=== PATIENT | female | born 1980 | race Caucasian/White ===

== ENCOUNTER 2017-10-20 06:00 | Inpatient (IN) ==
[2017-10-20] MEDS ORDERED: MAG-AL + SIM ORAL LIQUID 30ml PO PRN (06:17)
[2017-10-20] MEDS ORDERED: LIDOCAINE 1% (10mg/ml) 2mL INJ PF SDV ID PRN (06:17)
[2017-10-20] MEDS ORDERED: LR 1,000 ML IV PRN (06:17)
[2017-10-20] MEDS ORDERED: SALINE FLUSH 10ml SYRINGE IV PRN (06:17)
[2017-10-20] MEDS ORDERED: CARBOPROST 250 MCG/ML INJECTION IM PRN (06:17)
[2017-10-20] MEDS ORDERED: METHYLERGONOVINE 0.2 MG/ML INJECTION IM PRN (06:17)
[2017-10-20] MEDS ORDERED: OXYTOCIN DRIP 30 UNIT/500 ML ML IV PRN (06:17)
[2017-10-20] MEDS ORDERED: CALCIUM CARBONATE Chewable 500mg TABLET PO PRN ×2 (06:17→19:52)
--- OUTSIDE RECORDS SUMMARY | 2017-10-20 06:18 | External Medical Summary | Continuity of Care Document ---
:1980 Author Organization [facility] Address [address] [place], [place] [id number] Phone Care Team Providers Name Role Phone Humaira Santiago DO Unavailable Unavailable Allergies, Adverse Reactions, Alerts Substance Reaction Severity Status No Known Drug Allergies Unknown Active Medications Medication Instructions Dosage Effective Dates Status Comments (start - stop) DRAMAMINE (unknown take 1 tablet by oral - Active strength) route every 6 hours as needed as needed TUMS (unknown - Active strength) Vitamin D3 400 unit - Active capsule ferrous sulfate 325 take 1 tablet by ORAL 325 MG - Active mg (65 mg iron) route every day tablet vit-iron Take 1 by mouth daily - Active fumarate-FA 28 mg-0.8 mg Tab ZANTAC (unknown infuse by intravenous - Active strength) route every 8 hours over Problems Condition Effective Dates (start - stop) Clinical Status Family history of endo, nutritional - and metabolic diseases Follow-Up, Routine - Supervision of elderly multigravida, - third trimester 32 weeks gestation of - 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, second trimester 20 weeks gestation of - Supervision of elderly multigravida, - third trimester 28 weeks gestation of - Supervision of elderly multigravida, - first trimester Encntr screen for infections w sexl - mode of transmiss Encounter for screening for oth - infec/parastc diseases Encounter for suprvsn of normal - , first trimester Encounter For Other Specified - Screening 9 weeks gestation of - Supervision of elderly multigravida, - first trimester 13 weeks gestation of - Supervision of elderly multigravida, - second trimester 20 weeks gestation of - Supervision of elderly multigravida, - second trimester 16 weeks gestation of - Supervision of elderly multigravida, - third trimester Other malformation of placenta, third - trimester 33 weeks gestation of - Supervision of elderly multigravida, - third trimester 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, third trimester 30 weeks gestation of - Supervision of elderly multigravida, - third trimester Other malformation of placenta, third - trimester 34 weeks gestation of - Supervision of elderly multigravida, - third trimester Other malformation of placenta, third - trimester 33 weeks gestation of - Supervision of elderly multigravida, - third trimester Other malformation of placenta, third - trimester 34 weeks gestation of - Supervision of elderly multigravida, - third trimester 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, third trimester 32 weeks gestation of - Oth related conditions, - second trimester 15 weeks gestation of - 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, second trimester 24 weeks gestation of - Encntr for manager gyn exam (general) - (routine) w/o abn findings Family history of endo, nutritional and metabolic diseases Routine Care, Multigravida 38 weeks gestation of - Active Procedures Procedure Date OB Visit No Charge Results Test Name Date and Time Measure Units Reference Range Abnormal Flag Comments Unknown Advance Directives Directive Yes / No Effective Date File Name Unknown Encounters Encounter Practice Location Reason(s) Diagnoses Date Provider Care Team Description For Visit Members Morena [place] Supervision of Sep-2 Rc Referring In Womens elderly [place]. 700 Provider: jacob Beaversavipayton, 8 Medical [place] [address] third [facility] B, 1522, trimesterOther Dr Billy Garcia Polanco, malformation of 120, Medical [place], placenta, third [place], Center [id number], [id number] weeks [place], [address], [place] gestation of [id number] [place], tel: , [place]. [place], tel: tel: [phone] Morena [place] Supervision of Sep- Rc Referring In Womens Ultrasound elderly [place]. 700 Provider: robe Beavers, 8 Medical [place] [address] third [facility] B, [address], trimester[address] Billy Garcia Polanco, malformation of 120, Medical [place], placenta, third [place], Center [id number], [id number] weeks [place], [address], [place] gestation of [id number] [place], tel: , [place]. [place], tel: tel: [phone] Morena [place] Supervision of Sep- Rc Referring In Womens elderly [place]. 700 Provider: jacob Beaversavipayton, 8 Medical [place] [address] third [facility] B, 1522, trimesterOther Dr Billy Garcia Polanco, malformation of 120, Medical [place], placenta, third [place] [id number], weeks [place], [address], [place] gestation of [id number] [place], tel: , [place]. [place], tel: tel:[phone] Morena [place] Supervision of Sep- Rc Referring In Womens Ultrasound elderly [place]. 700 Provider: robe Beavers, 8 Medical [place] PO Box third [facility], 1522, trimesterOther Dr Billy Garcia Polanco, malformation of 120, Medical [place], placenta, third [place], [place] [id number], [id number] weeks [place], [address], [place] gestation of [id number] [place], tel:+ , [place]. [place], tel: tel:[phone] Morena [place] Supervision of Sep-1 Rc Referring In Womens elderly 2-201 [place]. 700 Provider: Health TO, multigravida, 8 Medical Humaira PO Box third [email or web address] Center [facility], 1522, weeks gestation Billy Stiles, of 120, Medical [place] RAWLS, [place] [id number], [place], [address], [place] [id number] [place], tel:+ , [place], tel: tel:[phone] [place] Supervision of Sep-1 Rc Referring In Womens Ultrasound elderly 2-201 [place]. 700 Provider: Health TO, multigravida, 8 Medical Humaira PO Box third Center [facility] B, 1522, trimesterPlacenta Dr Billy Garcia Lime, previa specified 120, Medical [facility], as w/o [place] [id number], hemorrhage, third [place], [address], [place] [id number] weeks [id number] [place], tel:+[phone] gestation of , [place]. [place], tel: tel:[phone] Morena [place] Supervision of Salvador-2 Rc Referring In Womens elderly 8-201 [place]. 700 Provider: Romana ARIZA multigravida, 8 Medical [place] PO Box third Center [place] B, [address], [address] Billy Garcia Lime, previa specified 120, Medical [facility], as w/o [place] [id number], hemorrhage, third [place], [address], [place] [id number] weeks [id number] [place], tel:+[phone] gestation of , [place]. [place], tel: tel:[phone] [place] Supervision of Salvador-1 Rc Referring In Womens elderly 4-201 [place]. 700 Provider: alanna Beaversgravida, 8 Medical Hum[place] PO Box third [email or web address] Center [facility], 1522, weeks gestation Billy Stiles, of 120, Medical [place] [facility] [id number], [place], [address], [place] [id number] [place], tel:+[phone] , [place], [address]. tel: tel:[phone] Morena [place] Placenta previa May-1 Rc Referring In Womens specified as w/o 7-201 [place]. 700 Provider: elis Beavers, second 8 Medical Humaira PO Box weeks Center [facility], 1522, gestation of Billy Stiles, 120, Medical [place] [facility] [id number], [place], [address], [place] [id number] [place], tel:+2 , [place], [address] tel: tel:[phone] [place] Placenta previa Apr-1 Rc Referring In Womens specified as w/o 9-201 [place]. 700 Provider: elis Beavers, second 8 Medical Humaira PO Box [id number] weeks Center Pamela [place], 1522, gestation of Billy Stiles, 120, Medical [place] [facility] [id number], [place], [address], [place] [id number] [place], tel:+[phone] , [place], [address] tel: tel:[phone] [place] Supervision of Apr-1 Rc Referring In Womens Ultrasound elderly 9-201 [place]. 700 Provider: alanna Beaversgravida, 8 Medical [place] PO Box second Center [facility], 1522, [email or web address] weeks Billy Stiles, gestation of 120, Medical [facility], [place], [place] [id number], [place], [address], [place] [id number] [place], tel:+[phone] , [place], [address] tel: tel:[phone] Morena [place] Supervision of Mar-2 Rc Referring In Womens elderly 0-201 [place]. 700 Provider: Health TO, multigravida, 8 Medical Humaira PO Box second [facility], 1522, [id number] weeks Billy Stilesta, gestation of 120, Medical [place], [facility] [id number], [place], [address], [place] [id number] [place], tel:+ , [place], [address] tel: tel:[phone] Morena [place] Ot May- Sobbing Referring In Womens related 9-201 [place]. Provider: Health TO, conditions, 8 [facility] Humaira PO Box second Medical [facility], 1522, [email or web address] weeks Center Garcia Polanco, gestation of Drive, Medical [place], Suite Center [id number], 120, [address], [place], tel:+ [place], [address], tel:+[phone] [place]. [id number] tel: [phone] Morena [place] Supervision of Rc Referring In Womens elderly 7-201 [place]. 700 Provider: Romana ARIZA, multigravida, 8 Medical [place] PO Box first Center [facility], 1522, weeks gestation Billy Stiles, of 120, Medical [facility], [facility] [id number], [place], [address], [place] [id number] [place], tel: , [place], [address]. tel: tel:[phone] Morena [place] Supervision of Rc Referring In Womens elderly 0-201 [place]. 700 Provider: Health TO, multigravida, 8 Medical Humaira PO Box first [facility], 1522, trimesterEncntr Billy Stiles Lime, screen for 120, Medical [place], infections [facility]l [facility] [id number], mode of [place], [address], [place] transmissEncounte [id number] [place], tel: [place] , [place], [address] for oth tel: tel:[phone] infec/parastc [phone] diseasesEncounter for suprvsn of normal , first trimesterEncounte r For Other Specified Screening9 weeks gestation of Morena [place] Encntr for manager gyn Sep-2 Rc Referring In Womens exam (general) [place]. 700 Provider: Romana ARIZA, (routine) w/o abn 6 Medical [place] PO Box [facility] [place], 1522, history of endo, Billy Stiles, nutritional and 120, Medical [place], metabolic [place], [place] [id number], diseasesFakyly [place], [address], [place] history of endo, [id number] [place], tel: nutritional and , [place]. [place], metabolic tel: tel:[phone] Morena [place] Nov-1 Rc Referring In Womens Follow-Up, [place]. 700 Provider: Romana ARIZA, Routine 5 Medical Humaira PO Box [facility], 1522, , Billy Polanco, 120, Medical [place] [facility] [id number], [place], [facility] 210, [place] [id number] [place], tel: , [place]. [place], tel: tel:+ [phone] Morena [place] Routine Care, Oct-0 Rc Referring In Womens [id number] - [place]. 700 Provider: Romana ARIZA, weeks gestation 5 Medical [place] PO Box of Center Rc Last, 1522, Billy Stiles, 120, Medical [place] [facility] [id number], [place], [facility] 120, [place] [id number] [place], tel: , . [place], tel: [phone]. [id number] tel:[phone] Morena [place] Sep-0 Rc Referring In Womens 3-201 [place]. 700 Provider: Romana ARIZA, 5 [facility] Box [place] Rc Last, 1522, Billy Stiles, 120, Medical [place] [facility] [id number], [place], Billy 120, [place] [id number] [place], tel: , . [place] tel: [phone]. [id number] tel:[phone] Morena [place] Sep-1 Rc In Womens 5-200 [place]. 700 [facility], 9 Medical [address] [place] 1522, , Billy Polanco, 120, [place], [place], [id number], [place], [place] [id number] tel: , [place]. tel: [phone] Morena [place] Sep-0 Dyer In Womens 2-200 Noemi. [facility], 8 700 PO Box Medical [address], [address], Billy [place], 120, [id number], [place], [place], tel: [phone] , [place]. tel: [phone] Family History Family Member Diagnosis Age At Onset Sister Gynecological Problem Mother Hypercholesterolemia Paternal Grandmother Diabetes mellitus Immunizations Vaccine Date Status Comments Influenza, injectable, completed Source: New Immunization Record quadrivalent, preservative free, 3 yrs or older Tdap completed Source: New Immunization Record Payers Payer name Insurance type Covered green party ID Authorization(s) [facility] [id number] [facility] [id number] [facility] [id number] Social History Type Description Quantity Date Captured Alcohol Use Details No Caffeine Use Details Unknown Tobacco Use Status Unknown Smoking Status Never smoker Vital Signs Date / Height Weight BMI Pulse Blood Temperature Respiratory Body Head BMI Time: Rate Pressure Rate Surface Circumference percentile Area 182.90 32.2 116/71 2018 lbs 9 mm[Hg] 8:51 kg/m AM eter (2) Chief Complaint And Reason For Visit Unknown Chief Complaint And Reason For Visit Reason For Referral Reason For Referral Unknown Plan Of Care Date Type Action Status Appointment Sharri Corona BOOKED Appointment Sharri Corona BOOKED Appointment Sharri Corona BOOKED Appointment Sharri Corona BOOKED Future Order: Radiology Order OB Detailed Complete Ultrasound Ordered ([id number]) Future Order: Radiology Order Biophysical Profile without NST Ordered ([id number]) Future Order: Radiology Order Umbilical Artery Echo ([id number]) Ordered Future Order: Radiology Order Biophysical Profile without NST Ordered ([id number]) Future Order: Radiology Order Umbilical Artery Echo ([id number]) Ordered Future Order: Radiology Order Ultrasound OB Follow-up ([id number]) Ordered Future Order: Lab Order Pap Smear With HPV Reflex If ASCUS Ordered ([id number]) Date Type Problem Goal Intervention Status Start Date Unknown. History Of Present Illness Encounter Date Complaint History Of Present Illness This patient has no known history of present illness Functional Status Encounter Date Functional Assessment Cognitive Assessment Unknown Medications Administered Medication Instructions Dosage Effective Dates (start - stop) Status Comments Drug Treatment Unknown Instructions Date Instruction Additional Information HIV and other routine tests risk factors identified by history anticipated course of care nutrition and weight gain counseling, special diet toxoplasmosis precautions (cats / raw meat) sexual activity exercise indications for ultrasound influenza vaccine environmental / work hazards travel use of any medications (including supplements, vitamins, herbs, OTC drugs) domestic violence seat belt use childbirth classes / hospital facilities hospital registration genetic testing
--- OUTSIDE RECORDS SUMMARY | 2017-10-20 06:18 | External Medical Summary | Continuity of Care Document ---
:1980 Author Organization [facility] Address [address] [place], [place] [id number] Phone Care Team Providers Name Role Phone Humaira Santiago DO Unavailable Unavailable Allergies, Adverse Reactions, Alerts Substance Reaction Severity Status No Known Drug Allergies Unknown Active Medications Medication Instructions Dosage Effective Dates Status Comments (start - stop) TUMS (unknown - Active strength) Vitamin D3 [...] - trimester 33 weeks gestation of - Placenta previa specified [...] Other malformation of placenta, third - trimester 35 weeks gestation of - Supervision of elderly multigravida, - third trimester Other malformation of placenta, third - trimester 33 weeks gestation of - Supervision of elderly multigravida, - third trimester Other malformation of placenta, third - trimester 34 weeks gestation of - Supervision of elderly multigravida, - third trimester 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, third trimester 32 weeks gestation of - Supervision of elderly multigravida, - third trimester Encounter For Screening For - Streptococcus B 35 weeks gestation of - Supervision of elderly multigravida, - third trimester 32 weeks gestation of - Oth related conditions, - second trimester 15 weeks gestation of - Other malformation of placenta, third - trimester 36 weeks gestation of - Other malformation of placenta, third - trimester 36 weeks gestation of - 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, second trimester 24 weeks gestation of - 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 Provider: Romana ARIZA, placenta, third 8 [facility] Humaira PO Box weeks [facility], 1522, gestation of [place], [facility] [address], [facility], Suite Center [id number], 120, [address], [place] Shemar Staton, tel:+ [place], [address]. [id number], tel: [place]. [phone] tel: [phone] Morena Staton Other Oct-0 Rc Referring In Womens Ultrasound malformation of [facility] 700 Provider: Romana ARIZA, placenta, third 8 Medical Humaira PO Box weeks [facility], 1522, gestation of [place], 120, Medical [facility] [id number], [place], [address], [place] [id number] She[place], tel: , [place], [address]. [id number] tel: tel: [phone] Morena Staton Supervision of Oct-0 Rc Referring In Womens elderly 2-201 [facility] 700 Provider: Romana ARIZA, multigravida, 8 Medical Humaira PO Box third Center [facility], 1522, trimesterEncounte [place], r For 120, [facility], Screening For Shemar [place] [id number], Streptococcus B35 [place], [address], [place] weeks gestation [id number] [place], tel: of , [place]. [place], tel: tel:[phone] Morena Staton Supervision of 0 Rc Referring In Womens Ultrasound elderly 2-201 [place]. 700 Provider: Health TO, multigravida, 8 Medical Humaira PO Box third Center [facility], 1522, trimesterOther [place], malformation of 120, Medical [place], placenta, third [place], Center [id number], [id number] weeks [place], [address], [place] gestation of [id number] [place], tel:+ , [place], tel: tel:[phone] [place] Supervision of Rc Referring In Womens elderly [place]. 700 Provider: alanna Beaversgravida, 8 Medical Humaira PO Box third [facility], 1522, trimesterOther [place], malformation of 120, Medical [place], placenta, third [place], Center [id number], [email or web address] weeks [place], [address], [place] gestation of [id number] [place], tel: , [place], tel: tel:[phone] [place] Supervision of Rc Referring In Womens Ultrasound elderly [place]. 700 Provider: Romana ARIZA, multigravida, 8 Medical Humaira PO Box third [facility], 1522, trimesterOther [place] St[place], malformation of 120, Medical [place], placenta, third [place], Center [id number], [email or web address] weeks [place], [address], [place] gestation of [id number] [place], tel: , [place], tel: tel:[phone] [place] Supervision of Rc Referring In Womens elderly - [place]. 700 Provider: Romana ARIZA, multigravida, 8 Medical Humaira PO Box third Center [facility], 1522, trimesterOther [place], malformation of 120, Medical [place], placenta, third [place], Center [id number], [id number] weeks [place], [address], [place] gestation of [id number] [place], tel: , [place], tel: tel: [phone] Morena Staton Supervision of Sep-1 Rc Referring In Womens Ultrasound elderly 9-201 [place]. 700 Provider: Health TO, multigravida, 8 Medical Humaira PO Box third Center [facility], 1522, trimesterOther Billy Stilesta, malformation of 120, Medical [place], placenta, third [facility] [id number], [email or web address] weeks [place], [address], [place] gestation of [id number] [place], tel: , [place], tel: tel:[phone] Morena Staton Supervision of Sep- Rc Referring In Womens elderly 2-201 [place]. 700 Provider: Romana ARIZA, multigravida, 8 Medical Humaira PO Box third [email or web address] Center [facility], 1522, weeks gestation Billy Stilesta, of 120, Medical Shemar RAWLS, [place] [id number], [place], [address], [place] [id number] [place], tel: , [place]. [place], tel: tel:[phone] Morena Staton Supervision of Sep- Rc Referring In Womens Ultrasound elderly 2-201 [place]. 700 Provider: Health TO, multigravida, 8 Medical Humaira PO Box third Center [facility] B, 1522, trimesterPlacenta Dr Billy 700 [place], previa specified 120, Medical [facility], as w/o Shemar [place] [id number], hemorrhage, third [place], [address], [place] [email or web address] weeks [id number] She[place], tel: gestation of , [place]. [place], tel: tel:[phone] [place] Supervision of [place]-2 Rc Referring In Womens elderly 8-201 [place]. 700 Provider: Health TO, multigravida, 8 Medical Humaira PO Box third Center [facility] B, 1522, trimesterPlacenta Dr, Billy 700 [place], previa specified 120, Medical [place], as w/o [facility] [id number], hemorrhage, third [place], [address], [place] [id number] weeks [id number] [place], tel:+ [place] , [place], [address] tel: tel:[phone] Morena Staton Supervision of Salvador- Rc Referring In Womens elderly 4- [place]. 700 Provider: jacob Beaversavipayton, 8 Medical Humaira PO Box third [email or web address] Center [facility], 1522, weeks gestation [place], of 120, Medical She[facility] [id number], [place], [address], [place] [id number] She[place], tel: , [place], [address] tel: tel:[phone] Morena Staton Placenta previa May- Rc Referring In Womens specified as w/o [place]. 700 Provider: elis Beavers, second 8 Medical Humaira PO Box [email or web address] weeks Center [facility], 1522, gestation of [place], 120, Medical [facility] [id number], [place], [address], [place] [id number] She[place], tel: , [place], [address] tel: tel:[phone] Morena Staton Placenta previa Apr-1 Rc Referring In Womens specified as w/o [place]. 700 Provider: elis Beavers, second 8 Medical Humaira PO Box [id number] weeks Center [facility], 1522, gestation of [place], 120, Medical She[facility] [id number], [place], [address], [place] [id number] She[place], tel: , [place], [address] tel: tel:[phone] Morena Staton Supervision of Apr- Rc Referring In Womens Ultrasound elderly [place]. 700 Provider: alanna Beaversgravipayton, 8 Medical Humaira PO Box second Center [facility], 1522, [email or web address] weeks Billy Stilesta, gestation of 120, Medical [place], [facility] [id number], [place], [address], [place] [id number] She[place], tel:+ , [place], [address]. tel: tel:[phone] Morena Staton Supervision of May-2 Rc Referring In Womens elderly 0-201 [place]. 700 Provider: Health TO, multigravida, 8 Medical Humaira PO Box second [facility], 1522, [id number] weeks [place], gestation of 120, Medical [place], [place], [place] [id number], [place], [address], [place] [id number] Shemar, tel:+ , [place], [address]. tel: tel:[phone] Mornea Staton Oth Mar-1 Sobbing Referring In Womens related 9-201 [place]. Provider: Health [place], conditions, 8 [facility] Humaira PO Box second [facility], 1522, [email or web address] weeks Center [place], gestation of Drive, Medical [place], [address] [id number], 120, [address], [place] Shemar [place], tel:+ [place], [address], tel:+[phone] [place]. [id number] tel: [phone] Morena Staton Supervision of Feb-2 Rc Referring In Womens elderly 7-201 [place]. 700 Provider: Romana ARIZA, multigravida, 8 Medical Humaira PO Box first [facility], 1522, weeks gestation [place], of 120, Medical [facility], [facility] [id number], [place], [address], [place] [id number] She[place], tel: , [place], [address]. tel: tel:[phone] Morena Staton Supervision of [place]-3 Rc Referring In Womens elderly 0-201 [place]. 700 Provider: Romana ARIZA, multigravida, 8 Medical Humaira PO Box first [facility], 1522, trimesterEncntr [place], screen for 120, Medical [place], infections w sexl Shemar [place] [id number], mode of [place], [address], [place] transmissEncounte [id number] Shemar, tel: r for screening , [place]. 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 700 Provider: Health TO, (routine) w/o abn 6 Medical Humaira [facility] [place], 1522, history of endo, , [place], nutritional and 120, Medical [place], metabolic [facility] [id number], [facility], [address], [place] history of endo, [id number] She[place], tel: nutritional and , [place]. [place], metabolic tel: tel:[phone] Morena Staton Nov- Rc Referring In Womens Follow-Up, [place]. 700 Provider: Romana ARIZA, Routine 5 Medical Humaira PO Box [place] Pamela Farnsworth, 1522, [place], 120, Medical She[facility] [id number], [place], [address], [place] [id number] She[place], tel: , [place]. [place], tel: tel:+ [phone] Morena Staton Routine Care, Oct-0 Rc Referring In Womens [id number] [place]. 700 Provider: Romana ARIZA, weeks gestation 5 Medical Michael PO Box of Center Rc Last, 1522, [place], 120, Medical She[facility] [id number], [place], [facility] 120, [place] [id number] [place], tel: , [place], tel: [phone]. [id number] tel:[phone] Morena Staton Sep-0 Rc Referring In Womens 3-201 [place]. 700 Provider: Health PA, 5 Medical [facility] Box [place] Rc Last, 1522, , [place] [address] [place], 120, Medical [place], [facility] [address] [id number], [place], [facility] 120, [place] [id number] [place], tel: , [place], tel: [phone]. [id number] tel:[phone] Associates Shemar Sep-1 Rc In Womens 5-200 [place]. 700 Health PA, 9 Medical Box [place] 1522, , Billy [place], 120, [facility], [place], [id number], [place], [place] [id number] tel: , [place]. tel: [phone] Morena Staton Sep-0 Dyer In Womens 2-200 Noemi. Health PA, 8 700 [facility] 1522, [place] Dr [place]lin, [facility], [facility], [id number], [place], [facility], tel: [phone] , [place]. tel: [phone] Family History Family Member Diagnosis Age At Onset Sister Gynecological Problem Mother Hypercholesterolemia Paternal Grandmother Diabetes mellitus Immunizations Vaccine Date Status Comments Tdap completed Source: New Immunization Record Influenza, injectable, completed Source: New Immunization Record quadrivalent, preservative free, 3 yrs or older Tdap completed Source: New Immunization Record Payers Payer name Insurance type Covered libertarian ID Authorization(s) [facility] [id number] [facility] [id number] [facility] [id number] [facility] [id number] Social History Type Description Quantity Date Captured Alcohol Use Details No Caffeine Use Details Unknown Tobacco Use Status Unknown Smoking Status Never smoker Vital Signs Date / Height Weight BMI Pulse Blood Temperature Respiratory Body Head BMI Time: Rate Pressure Rate Surface Circumference percentile Area 182.30 32.1 lbs 9 mm[Hg] 1:08 kg/m PM eter (2) Chief Complaint And Reason For Visit Unknown Chief Complaint And Reason For Visit Reason For Referral Reason For Referral Unknown Plan Of Care Date Type Action Status Appointment Sharri Corona- For KB BOOKED Appointment Sharri Corona [facility] PPTL BOOKED Future Order: Radiology Order OB Detailed Complete Ultrasound Ordered ([id number]) Future Order: Radiology Order Biophysical Profile without NST Ordered ([id number]) Future Order: Radiology Order Umbilical Artery Echo ([id number]) Ordered Future Order: Radiology Order Biophysical Profile without NST Ordered ([id number]) Future Order: Radiology Order Umbilical Artery Echo ([id number]) Ordered Future Order: Radiology Order Biophysical Profile without NST Ordered ([id number]) Future Order: Radiology Order Umbilical Artery Echo ([id number]) Ordered Future Order: Radiology Order Ultrasound OB Follow-up ([id number]) Ordered Future Order: Radiology Order Biophysical Profile without NST Ordered ([id number]) Future Order: Radiology Order Umbilical Artery Echo ([id number]) Ordered Future Order: Lab Order Pap Smear [...]
--- OUTSIDE RECORDS SUMMARY | 2017-10-20 06:18 | External Medical Summary | Continuity of Care Document ---
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 Provider: Romana ARIZA, placenta, third 8 [facility] [address] [email or web address] weeks [facility], 1522, gestation of [place] Garcia Polanco, Drive, [facility], Suite [address] [id number], [facility], [address], Shemar Staton, tel: [place], [address]. [id number], tel: . [phone] tel: [phone] Morena Staton Other Oct-0 Rc Referring In Womens Ultrasound malformation of 9[address] [facility] 700 Provider: Romana ARIZA, placenta, third 8 Medical [place] [address] [id number] weeks [facility], 1522, gestation of Billy Stiles, 120, Medical [facility] [id number], [place], [address], [place] [id number] Shemar, tel: , [facility], [address]. [id number] tel: tel: [phone] Morena Staton Supervision of Oct-0 Rc Referring In Womens elderly 2-201 [place]. 700 Provider: Romana ARIZA, multigravida, 8 Medical [place] PO Box third Center [facility], 1522, trimesterEncounte Billy Stiles r For 120, [facility], Screening For Shemar [place] [id number], Streptococcus B35 [place], [address], [place] weeks gestation [id number] [place], tel: of , [place]. [place], tel: tel: [phone] Morena Staton Supervision of Oct-0 Rc Referring In Womens Ultrasound elderly 2-201 [place]. 700 Provider: Health TO, multigravida, 8 Medical [place] PO Box third [facility], 1522, trimesterOther Dr Billy Garcia Polanco, malformation of 120, Medical [place], placenta, third Shemar, Center [id number], [id number] weeks [place], [address], [place] gestation of [id number] [place], tel: , [place]. [place], tel: tel:[phone] Morena Staton Supervision of Rc Referring In Womens elderly 5-201 [place]. 700 Provider: alanna Beaversgravida, 8 Medical [place] PO Box [facility], 1522, trimesterOther Dr Billy Garcia Polanco, malformation of 120, Medical [place], placenta, third Shemar, Center [id number], [id number] weeks [place], [address], [place] gestation of [id number] [place], tel: , [place]. [place], tel: tel:[phone] Morena Staton Supervision of Rc Referring In Womens Ultrasound elderly 5-201 [place]. 700 Provider: Romana ARIZA, alannagravida, 8 Medical [place] PO Box [facility], 1522, trimesterOther Dr Billy 700 [place], malformation of 120, Medical [place], placenta, third [place], Center [id number], weeks [place], [address], [place] gestation of [id number] [place], tel: , [place]. [place], tel: tel:[phone] Morena Staton Supervision of Sep- Rc Referring In Womens elderly 9-201 [place]. 700 Provider: Romana ARIZA, multigravida, 8 Medical [place] PO Box [facility], 1522, trimesterOther Dr, Billy Garcia Polanco, malformation of 120, Medical [place], placenta, third [place], Center [id number], [id number] weeks [place], [address], [place] gestation of [id number] [place], tel: , [place]. [place], tel: tel: [phone] Morena Staton Supervision of Sep-1 Rc Referring In Womens Ultrasound elderly 9-201 [place]. 700 Provider: Romana ARIZA, multigravida, 8 Medical [place] PO Box third [facility], 1522, trimesterOther , Billy 700 [place], malformation of 120, Medical [place], placenta, third [place], [place] [id number], [id number] weeks [place], [address], [place] gestation of [id number] [place], tel: , [place]. [place], tel: tel: [phone] Morena Staton Supervision of Sep-1 Rc Referring In Womens elderly 2-201 [place]. 700 Provider: Romana ARIZA, multigravida, 8 Medical [place] PO Box third [id number] Center [facility] B, 1522, weeks gestation Dr Billy Garcia [place], of 120, Medical [facility], Shemar, [place] [id number], [place], [address], [place] [id number] [place], tel: , [place]. [place], tel: tel: [phone] Morena Staton Supervision of Sep-1 Rc Referring In Womens Ultrasound elderly 2-201 [place]. 700 Provider: Romana ARIZA, multigravida, 8 Medical [place] PO Box third Center [facility], 1522, trimesterPlacenta , Billy 700 [place], previa specified 120, Medical [place], as w/o [place] [id number], hemorrhage, third [place], [address], [place] [id number] weeks [id number] Shemar, tel: gestation of , [place]. [place], tel: tel: [phone] Morena Staton Supervision of Salvador-2 Rc Referring In Womens elderly 8- [place]. 700 Provider: Romana ARIZA, multigravida, 8 Medical [place] PO Box third Center [facility], 1522, trimesterPlacenta Billy Stileschita, previa specified 120, Medical [place], as w/o Shemar [place] [id number], hemorrhage, third [place], [address], [place] [id number] weeks [id number] She[place], tel:+[phone] gestation [place] , [place], [address] tel: tel:[phone] Morena Staton Supervision of Salvador- Rc Referring In Womens elderly [place]. 700 Provider: robe Beavers, 8 Medical [place] PO Box third [email or web address] Center [facility], 1522, weeks gestation Billy Stiles, of 120, Medical [facility] [id number], [place], [address], [place] [id number] [place], tel:+ , [place]. [place], tel: tel:[phone] Staton Placenta previa May-1 Rc Referring In Womens specified as w/o Michael. 700 Provider: elis Beavers, second 8 Medical [place] PO [address] [email or web address] [facility], 1522, gestation of Billy Stiles, 120, Medical She[facility] [id number], [place], [address], [place] [id number] She[place], tel:+ , [place], [address] tel: tel:[phone] Morena Staton Placenta previa Apr-1 Rc Referring In Womens specified as w/o Michael. 700 Provider: elis Beavers, second 8 Medical [place] PO Box [id number] weeks Center [facility], 1522, gestation of Billy Stiles, 120, Medical Shemar [facility] [id number], [place], [address], [place] [id number] [place], tel:+ , [place]. [place], tel: tel:[phone] Staton Supervision of Apr-1 Rc Referring In Womens Ultrasound elderly Michael. 700 Provider: Health PA, multigravida, 8 Medical [place] PO Box second Center [place] B, 1522, [id number] weeks Billy Stileschita, gestation of 120, Medical [place], [place], [place] [id number], [place], [address], [place] [id number] She[place], tel:+ , [place], [address]. tel: tel:[phone] Morena Staton Supervision of May-2 Rc Referring In Womens elderly 0-201 [place]. 700 Provider: Romana ARIZA, multigravida, 8 Medical [place] PO Box second Center [facility], 1522, [email or web address] weeks Billy Stiles [place], gestation of 120, Medical [place], [place], [place] [id number], [place], [address], [place] [id number] She[place], tel:+ , [place], [address]. tel: tel:[phone] Morena Staton Oth May- Sobbing Referring In Womens related 9-201 [place]. Provider: Health TO, conditions, [address] [facility] PO Box second Medical [facility], 1522, [id number] weeks Center Garcia [place], gestation of Drive, Medical [place], [address] [id number], [facility], [address], [place] Shemar [place], tel: [place], [address], tel:+316 [place]. [id number] tel: [phone] Morena Staton Supervision of Apr-2 Rc Referring In Womens elderly 7-201 [place]. 700 Provider: Romana ARIZA, multigravida, 8 Medical [place] PO Box first [id number] Center [facility], 1522, weeks gestation Billy Stiles, of 120, Medical Shemar [facility] [id number], [place], [address], [place] [id number] [place], tel: , [place], [address] tel: tel:[phone] Morena Staton Supervision of Winston-3 Rc Referring In Womens elderly 0-201 [place]. 700 Provider: Romana ARIZA, multigravida, 8 Medical [place] PO Box first Center [place] B, 1522, trimesterEncntr , Billy Garcia Polanco, screen for 120, Medical [place], infections w sexl Shemar [place] [id number], mode of [place], [address], [place] transmissEncounte [id number] Shemar, tel: r for screening , [place]. [place], for oth tel: tel:[phone] infec/parastc [phone] diseasesEncounter for suprvsn of normal , first trimesterEncounte r For Other Specified Screening9 weeks gestation of Morena Staton Encntr for gynecological assistant Sep-2 Rc Referring In Womens exam (general) [place]. 700 Provider: Health TO, (routine) w/o abn 6 Medical [place] PO Box findingsFamily [facility], 1522, history of endo, Dr Billy Garcia Polanco, nutritional and 120, Medical [place], [facility] [id number], diseasesFamily [place], [address], [place] history of endo, [id number] Shemar, tel: nutritional and , [place]. [place], metabolic tel: tel:[phone] diseases [phone] Morena Staton Jan- Rc Referring In Womens Follow-Up, Michael. 700 Provider: Health TO, Routine 5 Medical [place] PO Box [facility], 1522, Billy Stiles, 120, Medical Shemar [facility] [id number], [place], [address], [place] [id number] [place], tel: , [place]. [place], tel: tel:[phone] Morena Staton Routine Care, Dec- Rc Referring In Womens [id number] [place]. 700 Provider: Romana ARIZA, weeks gestation 5 Medical Michael PO Box of [place] Rc R, 1522, Billy Stiles, 120, Medical Shemar [facility] [id number], [place], Billy 120, [place] [id number] [place], tel: , [place]. [place], tel: [phone]. [id number] tel:[phone] Morena Staton Sep-0 Rc Referring In Womens 3-201 [place]. 700 Provider: Health PA, 5 Medical [place] PO Box Center Rc R, [address]osi, , [place] [address] [place], 120, Medical [place], [facility] Dr [id number], [place], [facility] 120, [place] [id number] [place], tel: , [place]. [place], tel: [phone]. [id number] tel:[phone] Morena Staton Sep-1 Rc In Womens 5-200 [place]. 700 Health [place], 9 Medical PO Box Center [address], , [facility] [place], 120, [place], [place], [id number], [place], [place] [id number] tel: , [place]. tel: [phone] Morena Staton Sep-0 Dyer In Womens 2-200 Noemi. Health [place], [address] [place] [address], [place] Dr Collin, [facility], 120, [id number], [place], [place], tel: [phone] , [place]. tel: [phone] Family History Family Member Diagnosis Age At Onset Sister Gynecological Problem Mother Hypercholesterolemia Paternal Grandmother Diabetes mellitus Immunizations Vaccine Date Status Comments Tdap completed Source: New Immunization Record Influenza, injectable, completed Source: New Immunization Record quadrivalent, preservative free, 3 yrs or older Tdap completed Source: New Immunization Record Payers Payer name Insurance type Covered libertarian ID Authorization(s) [facility] [id number] [facility] [id number] [facility] [id number] [facility] [id number] Social History Type Description Quantity Date Captured Alcohol Use Details Unknown Caffeine Use Details Unknown Tobacco Use Status Unknown Smoking Status Never smoker Vital Signs Date / Height Weight BMI Pulse Blood Temperature Respiratory Body Head BMI Time: Rate Pressure Rate Surface Circumference percentile Area Unknown Chief Complaint And Reason For Visit Unknown Chief Complaint And Reason For Visit Reason For Referral Reason For Referral Unknown Plan Of Care Date Type Action Status Appointment Sharri Corona- For KB BOOKED Appointment Sharri Corona [facility] PPTL BOOKED Future Order: Radiology Order Biophysical Profile without NST Ordered ([id number]) Future Order: Radiology Order Umbilical Artery Echo ([id number]) Ordered Future Order: Radiology Order OB Detailed Complete Ultrasound Ordered ([id number]) Future Order: Radiology Order Biophysical Profile without NST Ordered ([id number]) Future Order: Radiology Order Umbilical Artery Echo ([id number]) Ordered Future Order: Radiology Order Biophysical Profile without NST Ordered ([id number]) Future Order: Radiology Order Umbilical Artery Echo ([id number]) Ordered Future Order: Radiology Order Ultrasound OB Follow-up ([id number]) Ordered Future Order: Radiology Order Biophysical Profile without NST Ordered ([id number]) Future Order: Radiology Order Umbilical Artery Echo ([id number]) Ordered Future Order: Lab Order Pap Smear [...]
--- OUTSIDE RECORDS SUMMARY | 2017-10-20 06:18 | External Medical Summary | Continuity of Care Document ---
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 700 Provider: robe Beavers, 8 Medical [place] PO Box [facility] B, 1522, trimesterOther Billy Stiles, malformation of 120, Medical [place], placenta, third Shemar, Center [id number], [id number] weeks [place], [address], [place] gestation of [id number] [place]mar, tel: , [place]. [place], tel: tel: [phone] Morena Staton Supervision of Sep-2 Rc Referring In Womens Ultrasound elderly [place]. 700 Provider: robe Beavers, 8 Medical [place] PO Box [facility] B, 1522, trimesterOther Billy Stiles, malformation of 120, Medical [place], placenta, third Shemar Center [id number], [id number] weeks [place], [address], [place] gestation of [id number] [place], tel: , [place]. [place], tel: tel: [phone] Morena Staton Supervision of Sep- Rc Referring In Womens elderly [place]. 700 Provider: robe Beavers, 8 Medical [place] PO Box [facility] B, 1522, trimesterOther Dr Billy Garcia Polanco, malformation of 120, Medical [place], placenta, third Shemar Center [id number], [email or web address] weeks [place], [address], [place] gestation of [id number] [place], tel: , [place]. [place], tel: tel: [phone] Morena Staton Supervision of Sep- Rc Referring In Womens Ultrasound elderly [place]. 700 Provider: robe Beavers, 8 Medical [place] PO Box third [facility], 1522, trimesterOther Dr Billy Garcia Polanco, malformation of 120, Medical [place], placenta, third Shemar [place] [id number], [id number] weeks [place], [address], [place] gestation of [id number] [place], tel:+ , [place]. [place], tel: tel:[phone] Morena Staton Supervision of Fernando-1 Rc Referring In Womens elderly 2-201 [place]. 700 Provider: Health TO, multigravida, 8 Medical [place] PO Box third [id number] Center [facility] B, 1522, weeks gestation Billy Stiles, of 120, Medical [place] [address] [id number], [place], [address], [place] [id number] She[place], tel:+ , [place]. [place], tel: tel:[phone] Morena Staton Supervision of Fernando-1 Rc Referring In Womens Ultrasound elderly 2-201 [place]. 700 Provider: Romana ARIZA multigravida, 8 Medical [place] PO Box third Center [facility] B, 1522, trimesterPlacenta Dr Billy 700 [place], previa specified 120, Medical [facility], as w/o Shemar [place] [id number], hemorrhage, third [place], [address], [place] [id number] weeks [id number] [place], tel:+ gestation of , [place]. [place], tel: tel:[phone] Staton Supervision of Salvador-2 Rc Referring In Womens elderly 8-201 [place]. 700 Provider: Health TO multigravida, 8 Medical [place] PO Box third Center [place] B, 1522, trimesterPlacenta Dr Billy 700 [place], previa specified 120, Medical [facility], as w/o Delphine [place] Dr [id number], hemorrhage, third [place], [address], [place] [id number] weeks [id number] [place], tel:+2 gestation of , [place]. [place], tel: tel:+[phone] Staton Supervision of Salvador-1 Rc Referring In Womens elderly 4-201 [place]. 700 Provider: alanna Beaversgravida, 8 Medical [place] PO Box third [id number] Center [facility], 1522, weeks gestation Billy Stiles, of 120, Medical [place] [facility] [id number], [place], [address], [place] [id number] She[place], tel:+ , [place], [address] tel: tel:[phone] Staton Placenta previa May-1 Rc Referring In Womens specified as w/o 7-201 [place]. 700 Provider: elis Beavers, second 8 Medical [place] PO Box [id number] weeks Center [facility] Daja, 1522, gestation of Billy Stiles, 120, Medical Shemar [facility] [id number], [place], [address], [place] [id number] [place], tel:+ , [place], [address] tel: tel:[phone] Staton Placenta previa Apr-1 Rc Referring In Womens specified as w/o 9-201 [place]. 700 Provider: elis Beavers, second 8 Medical [place] PO Box [id number] weeks Center Pamela [place], 1522, gestation of Billy Stiles, 120, Medical Shemar [facility] [id number], [place], [address], [place] [id number] [place], tel:+ , [place], [address] tel: tel:[phone] [place]on Supervision of Apr-1 Rc Referring In Womens Ultrasound elderly 9-201 [place]. 700 Provider: jacob Beaversavida, 8 Medical [place] PO Box second Center [facility], 1522, [email or web address] weeks Billy Stiles, gestation of 120, Medical [facility], [place], [place] [id number], [place], [address], [place] [id number] Shemar, tel:+2 , [place], [address] tel: tel:+[phone] Satton Supervision of Mar-2 Rc Referring In Womens elderly 0-201 [place]. 700 Provider: Health TO, multigravida, 8 Medical [place] PO Box second [facility], 1522, [id number] weeks Billy [place], gestation of 120, Medical [place], [facility] [id number], [place], [address], [place] [id number] [place], tel:+ , [place], [address] tel: tel:[phone] Morena Staton Ot May- Sobbing Referring In Womens related 9-201 [place]. Provider: Health TO, conditions, 8 [facility] PO Box second Medical [facility], 1522, [id number] weeks Center Garcia Polanco, gestation of Drive, Medical [place], [address] [id number], 120, [address], [place] Shemar [place], tel:+ [place], [address], tel:+316 [place]. 7557797 tel: [phone] Morena Staton Supervision of Rc Referring In Womens elderly 7-201 [place]. 700 Provider: Health TO, multigravida, 8 Medical [place] PO Box first [id number] Center [facility], 1522, weeks gestation Billy Stiles, of 120, Medical [facility], [facility] [id number], [place], [address], [place] [id number] [place], tel:+ , [place], [address] tel: tel:+[phone] Morena Staton Supervision of Rc Referring In Womens elderly 0-201 [place]. 700 Provider: Health TO, multigravida, 8 Medical [place] PO Box first [facility], 1522, trimesterEncntr Billy Stiles, screen for 120, Medical [place], infections w sexl [facility] [id number], mode of [place], [address], [place] transmissEncounte [id number] Shemar, tel:+ r for screening , [place]. 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 700 Provider: Romana ARIZA, (routine) w/o abn 6 Medical [place] PO Box [facility]Family [facility], 1522, history of endo, Billy Stiles, nutritional and 120, Medical [place], metabolic [facility] [id number], diseasesFatnly [place], [address], [place] history of endo, [id number] Shemar, tel:+ nutritional and , [place]. [place], metabolic tel: tel:+[phone] diseases [phone] Morena Staton Nov- Rc Referring In Womens Follow-Up, [place]. 700 Provider: Romana ARIZA, Routine 5 Medical [place] PO Box [place] Pamela [place]arnsworth, 1522, Billy Stiles, 120, Medical She[place] [facility] [id number], [place], [address], [place] [id number] [place], tel: , [place]. [place], tel: tel:+ [phone] Morena Staton Routine Care, Oct-0 Rc Referring In Womens [id number] - [place]. 700 Provider: Romana ARIZA, weeks gestation 5 Medical [place] PO Box of Center Rc Last, 1522, Billy Stiles, 120, Medical She[place] [facility] [id number], [place], [place] 120, [place] [id number] Shemar, tel: , . [place], tel: [phone]. [id number] tel:[phone] Morena Staton Sep-0 Rc Referring In Womens 3-201 [place]. 700 Provider: Romana ARIZA, 5 Medical [place] PO Box Center Rc Last, 1522, Billy Stiles, 120, Medical She[place] [facility] [id number], [place], [place] 120, [place] [id number] Shemar, tel: , . [place] tel: [phone]. [id number] tel:[phone] Morena Staton Sep-1 Rc In Womens 5-200 [place]. 700 [facility], 9 Medical PO Box [place] 1522, , Billy Polanco, 120, [place], [place], [id number], [place], [place] [id number] tel: , [place]. tel: [phone] Morena Staton Sep-0 Dyer In Womens 2-200 Noemi. [facility], 8 700 PO Box [facility] 1522, Center Dr Collin, Billy [place], 120, [id number], [place], [place], tel: [phone] , [place]. tel: [phone] Family History Family Member Diagnosis Age At Onset Sister Gynecological Problem Mother Hypercholesterolemia Paternal Grandmother Diabetes mellitus Immunizations Vaccine Date Status Comments Influenza, injectable, completed Source: New Immunization Record quadrivalent, preservative free, 3 yrs or older Tdap completed Source: New Immunization Record Payers Payer name Insurance type Covered green party ID Authorization(s) [facility] [id number] [facility] [id number] [facility] [id number] Social History Type Description Quantity Date Captured Unknown Vital Signs Date / Height Weight BMI [...] Sharri Corona BOOKED Future Order: Radiology Order Ultrasound OB Follow-up ([id number]) Ordered Future Order: Radiology Order OB Detailed Complete Ultrasound Ordered ([id number]) Future Order: Radiology Order Biophysical Profile without NST Ordered ([id number]) Future Order: Radiology Order Umbilical Artery Echo ([id number]) Ordered Future Order: Radiology Order Biophysical Profile without NST Ordered ([id number]) Future Order: Radiology Order Umbilical Artery Echo ([id number]) Ordered Future Order: Lab Order Pap Smear [...]
--- OUTSIDE RECORDS SUMMARY | 2017-10-20 06:18 | External Medical Summary | Continuity of Care Document ---
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) - (routine) w/o abn findings Family history of endo, nutritional and metabolic diseases Routine Care, Multigravida 38 weeks gestation of - Active Procedures Procedure Date Unknown Results Test Name Date and Time Measure Units Reference Range Abnormal Flag Comments Unknown Advance Directives Directive Yes / No Effective Date File Name Unknown Encounters Encounter Practice Location Reason(s) Diagnoses Date Provider Care Team Description For Visit Members Morena [place] Supervision of Rc Referring In Womens elderly 2-[address] [place] [address] Provider: robe Beavers, 8 Medical [place] PO Box third [facility], 1522, trimesterEncounte Billy Stiles r For 120, Medical [place], Screening For [place], [place] [id number], Streptococcus B35 [place], [address], [place] weeks gestation [id number] Shemar, tel: of , [place]. [place], tel: tel: [phone] Morena [place] Supervision of Rc Referring In Womens Ultrasound elderly 2-[address] [place] [address] Provider: robe Beavers, 8 Medical [place]air[place] PO Box third Center [facility], 1522, trimesterOther Billy Stiles, malformation of 120, Medical [place], placenta, third Shemar [place] [id number], [id number] weeks [place], [address], [place] gestation of [id number] Shemar, tel: , [place]. [place], tel: tel: [phone] Morena [place] Supervision of Rc Referring In Womens elderly 5-201 [facility] 700 Provider: robe Beavers, 8 Medical [place] PO Box third Center [facility], 1522, trimesterOther Billy Stiles, malformation of 120, Medical [place], placenta, third [place], [place] [id number], [id number] weeks [place], [address], [place] gestation of [id number] Shemar, tel: , [place], tel: tel: [phone] Morena [place] Supervision of Fernando-2 Rc Referring In Womens Ultrasound elderly 5- [place]. 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, [address] tel: tel: [phone] Morena [place] Supervision of Fernando-1 Rc Referring In Womens elderly - [place]. 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, [address] tel: tel: [phone] Morena [place] Supervision of Fernando-1 Rc Referring In Womens Ultrasound elderly [place]. 700 Provider: robe Beavers, 8 Medical [place] PO Box third Center [facility], 1522, trimesterOther Billy Stiles, malformation of 120, Medical [place], placenta, third [place], Center [id number], [email or web address] weeks [place], [address], [place] gestation of [id number] [place], tel: , [place], [address] tel: tel: [phone] Morena [place] Fernando-1 Rc In Womens 2- [place]. 700 Romana ARIZA, [facility] PO Box Center 1522, Billy Stiles, 120, [place], [place], [id number], [place], [place] [id number] tel: , [place]. tel: [phone] Morena [place] Supervision of Fernando-1 Rc Referring In Womens elderly 2-201 [place]. 700 Provider: Health PA, multigravida, 8 Medical Humair[place] PO Box third [id number] Center [facility], 1522, weeks gestation Billy Stiles, of 120, Medical Shemar RAWLS, Center [id number], [place], [address], [place] [id number] She[place], tel:+ , [place]. [place], tel: tel:[phone] Morena [place] Supervision of Sep-1 Rc Referring In Womens Ultrasound elderly 2-201 [facility] 700 Provider: Health PA, multigravida, 8 Medical Humaira PO Box third Center [facility], 1522, trimesterPlacenta Billy Stiles [place], previa specified 120, Medical [facility], as w/o Shemar [place] [id number], hemorrhage, third [place], [address], [place] [email or web address] weeks [id number] Shemar, tel:+2 gestation of , [place]. [place], tel: tel:[phone] Morena [place] Supervision of Salvador-2 Rc Referring In Womens elderly 8-201 [facility] 700 Provider: Health PA, multigravida, 8 Medical [place] PO Box third [facility], [address], [address], previa specified 120, Medical [facility], as w/o Shemar [place] [id number], hemorrhage, third [place], [address], [place] [email or web address] weeks [id number] Shemar, tel:+2 gestation of , [place]. [place], tel: tel:[phone] Morena [place] Supervision of Aug- Rc Referring In Womens elderly 4-201 [facility] 700 Provider: Health PA, multigravida, 8 Medical [place] PO Box third [id number] Center [facility] B, 1522, weeks gestation Billy Stiles, of 120, Medical Shemar RAWLS, [place] [id number], [place], [address], [place] [id number] Shemar, tel:+[phone] , [place]. [place], tel: tel:[phone] Morena [place] Placenta previa May-1 Rc Referring In Womens specified as w/o 7-201 [place]. 700 Provider: elis Beavers, second 8 Medical [place] PO Box [email or web address] weeks Center Pamela Farnsworth, 1522, gestation of Billy Stiles, 120, Medical [facility], Shemar, [place] [id number], [place], [address], [place] [id number] Shemar, tel:+ , [place], [address] tel: tel:[phone] [place] Placenta previa Apr-1 Rc Referring In Womens specified as w/o 9-201 [place]. 700 Provider: elis Beavers, second 8 Medical Humair[place] PO Box [email or web address] weeks [place] Sandra Daja, 1522, gestation of Billy Stiles, 120, Medical She[facility] [id number], [place], [address], [place] [id number] Shemar, tel:+ , [place], [address] tel: tel:[phone] [place] Supervision of Apr-1 Rc Referring In Womens Ultrasound elderly 9-201 [place]. 700 Provider: jacob Beaversavipayton, 8 Medical Humaira PO Box second [facility], 1522, weeks Billy Stiles, gestation of 120, Medical [place], [place], [place] [id number], [place], [address], [place] [id number] Shemar, tel:+ , [place], [address] tel: tel:[phone] [place] Supervision of Mar-2 Rc Referring In Womens elderly 0-201 [place]. 700 Provider: jacob Beaversavipayton, 8 Medical Humaira PO Box second Center [facility], 1522, [id number] weeks Billy Stiles, gestation of 120, Medical [place], [place], [place] [id number], [place], [address], [place] [id number] Shemar, tel:+ , [place], [address] tel: tel:[phone] [place] Oth Mar-1 Sobbing Referring In Womens related 9-201 [place]. Provider: Health PA, conditions, 8 700 [place] PO Box second Medical [facility], 1522, [email or web address] weeks Center Garcia Polanco, gestation of Drive, Medical [place], Suite [address] [id number], 120, [address], [place] Shemar [place], tel:+ [place], [address], tel:+[phone] [place]. [id number] tel: [phone] Morena [place] Supervision of Apr- Rc Referring In Womens elderly - [place] [address] Provider: Health TO, multigravida, 8 Medical [place] PO Box first [id number] [facility], 1522, weeks gestation Billy Stiles, of 120, Medical Shemar [facility] [id number], [place], [address], [place] [id number] Shemar, tel:+ , [place]. [place], tel: tel:+ [phone] Morena [place] Supervision of Mar-3 Rc Referring In Womens elderly 0-201 [place] [address] Provider: Romana ARIZA, multigravida, 8 Medical [place] PO Box first [facility], 1522, trimesterEncntr Billy Stiles, screen for 120, Medical [place], infections w sexl Shemar [place] [id number], mode of [place], [address], [place] transmissEncounte [id number] Shemar, tel:2 r for screening , [place]. 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, [address]. metabolic tel: tel: diseases [phone] Morena [place] Nov-1 Rc Referring In Womens Follow-Up, 7-201 [place]. 700 Provider: Health TO, Routine 5 Medical [facility] Box [place] Pamela Farnsworth, 1522, , Billy Garcia Polanco, 120, Medical [place], [facility] [id number], [place], [address], [id number] Shemar, tel: , [place]. [place], tel: tel: [phone] Morena [place]on Routine Care, Oct-0 Rc Referring In Womens [id number] 1-201 [place]. 700 Provider: Health TO, weeks gestation 5 [facility] [place] Rc Last, 1522, Billy Stiles, 120, Medical [place], [facility] [id number], [place], [facility] 120, [place] [id number] Shemar, tel: , . [place], tel: [phone]. [id number] tel:[phone] Morena [place] Sep-0 Rc Referring In Womens 3-201 [place]. 700 Provider: Health TO, 5 [facility] Rc Last, 1522, , Billy Polanco, 120, Medical [facility], [facility] [id number], [place], [facility] 120, [place] [id number] Shemar, tel: , . [place], tel: [phone]. [id number] tel:[phone] Morena [place] Sep-1 Rc In Womens 5-200 [place]. 700 Health TO, 9 [facility] Box [place] 1522, Billy Stiles, 120, AKShemar, [id number], [place], [id number] tel: , [place]. tel: [phone] Morena [place] Sep-0 Dyer In Womens 2-200 Noemi. Health TO, [address] [place] [address] 1522, [address], [facility], 120, [id number], [facility] [place], tel:[phone] [address] , . tel: [phone] Family History Family Member Diagnosis Age At Onset Sister Gynecological Problem Mother Hypercholesterolemia Paternal Grandmother Diabetes mellitus Immunizations Vaccine Date Status Comments Tdap completed Source: New Immunization Record Influenza, injectable, completed Source: New Immunization Record quadrivalent, preservative free, 3 yrs or older Tdap completed Source: New Immunization Record Payers Payer name Insurance type Covered alliance party ID Authorization(s) [facility] [id number] [facility] [id number] [facility] [id number] [facility] [id number] Social History Type Description Quantity Date Captured [...] Radiology Order OB Detailed Complete Ultrasound Ordered ([id number]) Future Order: Radiology Order Biophysical Profile without NST Ordered ([id number]) Future Order: Radiology Order Umbilical Artery Echo ([id number]) Ordered Future Order: Radiology Order Biophysical Profile without NST Ordered ([id number]) Future Order: Radiology Order Umbilical Artery Echo ([id number]) Ordered Future Order: Radiology Order Biophysical Profile without NST Ordered ([id number]) Future Order: Radiology Order Umbilical Artery Echo ([id number]) Ordered Future Order: Radiology Order Ultrasound OB Follow-up ([id number]) Ordered Future Order: Lab Order Pap Smear [...]
--- OUTSIDE RECORDS SUMMARY | 2017-10-20 06:19 | External Medical Summary | Continuity of Care Document ---
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) - (routine) w/o abn findings Family history of endo, nutritional and metabolic diseases Routine Care, Multigravida 38 weeks gestation of - Active Procedures Procedure Date OB Visit No Charge Automated hemogram (CBC) Glucose test Venpnctr fngr/heel/ear stick routne Results Test Name Date and Time Measure Units Reference Range Abnormal Flag Comments Panel Description: CBC With Differential/Platelet WBC 09:56:00 7.9 x10E3/uL 3.4-10.8 RBC 09:56:00 3.67 x10E6/uL 3.77-5.28 L Hemoglobin 09:56:00 11.0 g/dL 11.1-15.9 L Hematocrit 09:56:00 33.7 % 34.0-46.6 L MCV 09:56:00 92 fL 79-97 MCH 09:56:00 30.0 pg 26.6-33.0 MCHC 09:56:00 32.6 g/dL 31.5-35.7 RDW 09:56:00 14.5 % 12.3-15.4 Platelets 09:56:00 248 x10E3/uL 150-379 Neutrophils 09:56:00 72 % Not Estab. Lymphs 09:56:00 22 % Not Estab. Monocytes 09:56:00 5 % Not Estab. Eos 09:56:00 1 % Not Estab. Basos 09:56:00 0 % Not Estab. Immature Cells 09:56:00 Neutrophils (Absolute) 09:56:00 5.7 x10E3/uL 1.4-7.0 Lymphs (Absolute) 09:56:00 1.7 x10E3/uL 0.7-3.1 Monocytes(Absolute) 09:56:00 0.4 x10E3/uL 0.1-0.9 Eos (Absolute) 09:56:00 0.1 x10E3/uL 0.0-0.4 Baso (Absolute) 09:56:00 0.0 x10E3/uL 0.0-0.2 Immature Granulocytes 09:56:00 0 % Not Estab. Immature Grans (Abs) 09:56:00 0.0 x10E3/uL 0.0-0.1 NRBC 09:56:00 Hematology Comments: 09:56:00 Panel Description: Glucose [Mass/volume] in Serum or Plasma --1 hour post 50 g glucose PO Gestational Diabetes Screen 09:56:00 117 mg/dL 65-135 Advance Directives Directive Yes / No Effective Date File Name Unknown Encounters Encounter Practice Location Reason(s) Diagnoses Date Provider Care Team Description For Visit Members Associates [facility] Supervision of Rc Referring In Womens elderly 8-201 [place]. 700 Provider: Health PA, multigravida, 8 Medical Humaira PO Box [facility] Pamela B, 1522, trimesterPlacenta , Billy 700 [employer], previa specified 120, Medical [place], as [facility] [id number], hemorrhage, third [place], [address], [place] [id number] weeks [id number] Shemar, tel:+ gestation of , [place]. [place], tel: tel:[phone] Morena [place] Supervision of Salvador- Rc Referring In Womens elderly 4- [place]. 700 Provider: Romana ARIZA multigravida, 8 Medical Hum[place] PO Box third [id number] Center [facility], 1522, weeks gestation Billy Stiles, of 120, Medical Shemar [facility] [id number], [place], [address], [place] [id number] [place], tel: , [place], [address] tel: tel:[phone] Morena [place] Placenta previa May- Rc Referring In Womens specified as w/o 7 [place]. 700 Provider: elis Beavers, second 8 Medical [place] PO Box [id number] weeks Center Sandra Daja, 1522, gestation of Billy Stilse, 120, Medical Shemar [facility] [id number], [place], [address], [place] [id number] [place], tel: , [place], [address] tel: tel: [phone] Morena [place]on Placenta previa Jun- Rc Referring In Womens specified as w/o [place]. 700 Provider: elis Beavers, second 8 Medical [place] PO Box [email or web address] weeks Center Pamela Farnsworth, 1522, gestation of Billy Stiles, 120, Medical Shemar [facility] [id number], [place], [address], [place] [id number] [place], tel: , [place], [address] tel: tel:[phone] Morena [place] Supervision of Jun- Rc Referring In Womens Ultrasound elderly - [place]. 700 Provider: alanna Beaversgravida, 8 Medical Humaira PO Box second Center [facility], 1522, [id number] weeks Billy Stiles, gestation of 120, Medical [place], [facility] [id number], [place], [address], [place] [id number] [place], tel: , [place], [address] tel: tel:[phone] Morena [place] Supervision of Rc Referring In Womens elderly 0-201 [place]. 700 Provider: Health TO, multigravida, 8 Medical Humaira PO Box second [facility], 1522, [id number] weeks Billy Stiles, gestation of 120, Medical [place], [facility] [id number], [place], [address], [place] [id number] She[place], tel:+ , [place], [address] tel: tel:[phone] Morena [place] Oth May- Sobbing Referring In Womens related 9-201 [place]. Provider: Health PA, conditions, 8 [facility] Humaira PO Box [facility], 1522, [id number] weeks [place] Garcia Polanco, gestation of Drive, Medical [place], Suite [address] [id number], 120, [address], [place] Shemar [place], [place]: [place], [address], tel:+316 [place]. 1866682 tel: [phone] Morena [place] Supervision of Rc Referring In Womens elderly 7-201 [place]. 700 Provider: Health TO, multigravida, 8 Medical Humaira PO Box first Center [facility], 1522, weeks gestation Billy Stiles, of 120, Medical [facility], [facility] [id number], [place], [address], [place] [id number] [place], tel: , [place], [address] tel: tel:[phone] Morena [place] Supervision of Rc Referring In Womens elderly 0-201 [place]. 700 Provider: Health TO, multigravida, 8 Medical Humaira PO Box first [facility], 1522, trimesterEncntr Billy Stiles, screen for 120, Medical [place], infections w sexl [facility] [id number], mode of [place], [address], [place] transmissEncounte [id number] She[place], tel:+ r for [place] , [place], [address]. 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 700 Provider: Health TO, (routine) w/o abn 6 Medical Humaira PO Box [facility], 1522, history of endo, , Billy 700 [employer], nutritional and 120, Medical [place], metabolic [place], [place] [id number], [facility], [address], history of endo, [id number] Shemar, tel:+ nutritional and , [place]. [place], metabolic tel: tel:[phone] diseases [phone] Morena [place] Nov-1 Rc Referring In Womens Follow-Up, [place]. 700 Provider: Romana ARIZA, Routine 5 Medical [place]aira PO Box [place] [facility], 1522, , Billy 700 [employer], 120, Medical Shemar [facility] [id number], [place], [address], [id number] [place], tel:+ , [place], [address]. tel: tel:+ [phone] Morena [place]on Routine Care, Oct-0 Rc Referring In Womens [id number] - [place]. 700 Provider: Romana ARIZA, weeks gestation 5 Medical Michael PO Box of Center Rc R, 1522, Dr Billy Garcia Polanco, 120, Medical Shemar RAWLS, [place] [id number], [place], [facility] 120, [place] [id number] Sheamr, tel:+ , . [place], tel: [phone]. [id number] tel:[phone] Morena [place] Sep-0 Rc Referring In Womens 3-201 [place]. 700 Provider: Romana ARIZA, 5 Medical [place] PO Box Center Rc R, 1522, , Billy 700 [employer], 120, Medical [place], [facility] [id number], [place], [facility] 120, [place] [id number] [place], tel: , [place]. [place], tel: [phone]. [id number] tel:[phone] [facility] Sep-1 Rc In Womens 5-[address] [place] [address], 9 Medical PO Box [place] 1522, , Billy Polanco, 120, [place], [place], [id number], [place], [place] [id number] tel: , [place]. tel: [phone] [facility] Sep-0 [place] In Womens 2-200 Noemi. [facility], 8 700 [address] [place] [address], [place] [address] [place], [facility], 120, [id number], [place], [facility], tel: [phone] , [place]. tel: [phone] Family History Family Member Diagnosis Age At Onset Sister Gynecological Problem Mother Hypercholesterolemia Paternal Grandmother Diabetes mellitus Immunizations Vaccine Date Status Comments Influenza, injectable, completed Source: New Immunization Record quadrivalent, preservative free, 3 yrs or older Tdap completed Source: New Immunization Record Payers Payer name Insurance type Covered libertarian ID Authorization(s) [facility] [id number] [facility] [id number] [facility] [id number] Social History Type Description Quantity Date Captured [...] Radiology Order OB Detailed Complete Ultrasound Ordered ([id number]) Future Order: Lab Order Pap Smear With [...]
--- OUTSIDE RECORDS SUMMARY | 2017-10-20 06:19 | External Medical Summary | Continuity of Care Document ---
:1980 Author Organization [email or web address] Address [address] [place], [place] [address] Phone Care Team Providers Name Role Phone Humaira Santiago DO Unavailable Unavailable Allergies, Adverse Reactions, Alerts Substance Reaction Severity Status No Known Drug Allergies Unknown Active Medications Medication Instructions Dosage Effective Dates Status Comments (start - stop) vit-iron Take 1 by mouth daily - Active fumarate-FA 28 mg-0.8 mg Tab Problems Condition Effective Dates (start - stop) Clinical Status Family history of endo, nutritional - and metabolic diseases Follow-Up, Routine - Supervision of elderly multigravida, - second [...] first trimester 13 weeks gestation of - Oth related conditions, - second trimester 15 weeks gestation of - 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 700 Provider: Romana ARIZA, alannagravida, 8 Medical Humaira PO Box second [id number] Center [facility], 1522, weeks gestation of Billy Stileschita, 120, Medical [facility] [id number], [place], [address], [id number] [place], tel:+ , [facility], [address]. tel: tel: [phone] Morena [place] Ot May- Sobbing Referring In Womens related conditions, [place]. Provider: Romana ARIZA, second [email or web address] 8 700 Humaira PO Box weeks gestation of [facility], 1522, Center [address] [place] [address], [facility], [facility] Center [id number], [facility], [address], Shemar [place], tel: [place], [address], tel: [place]. [phone] tel: [phone] Morena [place] Supervision of Apr- Rc Referring In Womens elderly 7-201 [facility] 700 Provider: Romana ARIZA, alannagravida, first 8 Medical Humaira PO Box [email or web address] weeks Center [facility], 1522, gestation of Billy Stilesta, 120, Medical [facility] [id number], [place], [address], [place] [id number] [place], tel: , [facility], [address]. tel: tel:[phone] Morena [place] Supervision of Mar- Rc Referring In Womens elderly 0-201 [place]. 700 Provider: Romana ARIZA, multigravida, first 8 Medical Humaira PO Box trimesterEncntr [facility], 1522, screen for Billy Stiles, infections w sexl 120, Medical [place], mode of [place] [id number], transmissEncounter [place], [address], [place] for screening for [id number] [place], tel:+ ot infec/parastc , . [place], . diseasesEncounter tel: tel:[phone] for suprvsn of [phone] normal , first trimesterEncounter For Other Specified Screening9 weeks gestation of Morena [place] Encntr for upper doubler exam Sep-2 Rc Referring In Womens (general) (routine) [place]. 700 Provider: Health TO, w/o abn 6 [facility] Pamela Farnsworth, 1522, history of endo, Billy Stiles, nutritional and 120, Medical [place], [facility] [id number], [facility], [address], [place] history of endo, [id number] [place], tel: nutritional and , [place]. [place], metabolic diseases tel: tel:[phone] Morena [place] Nov- Rc Referring In Womens Follow-Up, Routine [place]. 700 Provider: Romana ARIZA, 5 [facility] Pamela Farnsworth, 1522, Billy Stiles, 120, Medical [facility], [facility] [id number], [place], [address], [place] [id number] [place], tel: , [place]. [place], tel: tel:[phone] Morena [place] Routine Care, Dec- Rc Referring In Womens [id number] [place]. 700 Provider: Romana ARIZA, weeks gestation of 5 [facility] Center Rc Last, 1522, Billy Stiles, 120, Medical [place] [facility] [id number], [place], [facility] 120, [place] [id number] [place], tel: , . [place], tel: [phone]. [phone] tel:[phone] Morena [place] Sep-0 Rc Referring In Womens 3-201 [place]. 700 Provider: Health [place], 5 Medical [facility] Box [place] Rc Last, 1522, , [place] [address] [place], 120, Medical [place], [facility] Dr [id number], [place], [facility] 120, [place] [id number] [place], tel: , [place]. [place], tel: [phone]. [phone] tel:[phone] Morena [place] Sep-1 Rc In Womens 5-200 [place]. 700 Health [place], 9 Medical Box [place] 1522, , [facility] [place], 120, [facility], [place], [id number], [place], [place] [id number] tel: , [place]. tel: [phone] Morena [place] Sep-0 [place] In Womens 2-200 Noemi. Health [place], 8 700 [facility] 1522, [place] [address] [place], [facility], 120, [id number], [place], [facility], tel: [phone] , [place]. tel: [phone] Family History Family Member Diagnosis Age At Onset Sister Gynecological Problem Mother Hypercholesterolemia Paternal Grandmother Diabetes mellitus Immunizations Vaccine Date Status Comments Influenza, injectable, completed Source: New Immunization Record quadrivalent, preservative free, 3 yrs or older Tdap completed Source: New Immunization Record Payers Payer name Insurance type Covered democrat ID Authorization(s) [facility] [id number] [facility] [id number] [facility] [id number] Social History Type Description Quantity Date Captured Alcohol Use Details No Caffeine Use Details Unknown Tobacco Use Status Unknown Smoking Status Never smoker Vital Signs Date / Height Weight BMI Pulse Blood Temperature Respiratory Body Head BMI Time: Rate Pressure Rate Surface Circumference percentile Area 174.70 30.8 / lbs 4 mm[Hg] 9:15 kg/m AM eter (2) Chief Complaint And Reason For Visit Unknown Chief Complaint And Reason For Visit Reason For Referral Reason For Referral Unknown Plan Of Care Date Type Action Status Appointment Sharri Corona BOOKED Appointment Sharri Corona BOOKED Future Order: Lab Order Pap Smear With [...]
--- OUTSIDE RECORDS SUMMARY | 2017-10-20 06:19 | External Medical Summary | Continuity of Care Document ---
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 700 Provider: elis Beavers, [facility] 8 Medical Humaira PO Box [id number] weeks [place] Pamela Farnsworth, 1522, gestation of Billy Stiles, 120, Medical [place], [facility] [id number], [place], [address], [place] [id number] [place], tel: , [facility], [address]. [address] tel: tel: [phone] Morena [place] Supervision of Jun-1 Rc Referring In Womens Ultrasound elderly [place]. 700 Provider: robe Beavers, 8 Medical Humaira PO Box [facility] Pamela Farnsworth, 1522, [id number] weeks Billy Stiles, gestation of 120, Medical [place], [facility] [id number], [place], [address], [place] [id number] [place], tel: , [facility], [address]. [address] tel: tel: [phone] Morena [place] Apr-1 Rc In Womens - [place]. 700 Romana ARIZA, 8 Medical PO Box Center 1522, Billy Stiles, 120, [facility], [place] [id number], [place], [place] [id number] tel: , [place]. tel: [phone] Morena [place] Supervision of Mar-2 Rc Referring In Womens elderly 0-201 [place]. 700 Provider: Health TO, multigravida, 8 Medical Humaira PO Box second Center [facility], 1522, [id number] weeks Billy Stiles, gestation of 120, Medical [place], [facility] [id number], [place], [address], [place] [id number] [place], tel: , [place], [address] tel: tel:[phone] Morena [place] Oth May- Sobbing Referring In Womens related 9-201 [place]. Provider: Health [place], conditions, 8 700 Humaira PO Box second Medical [facility], 1522, [id number] weeks Delphine Polanco, gestation of Drive, Medical [place], Suite Center [id number], 120, [address], [place], tel: [place], [address], tel:+ [place]. [phone] tel: [phone] Morena [place] Supervision of Rc Referring In Womens elderly 7-201 [place]. 700 Provider: Health TO, multigravipayton, 8 Medical Humaira PO Box first Center [facility], 1522, weeks gestation Billy Stiles, of 120, Medical [facility], [facility] [id number], [place], [address], [place] [id number] [place], tel: , [place], [address] tel: tel:[phone] Morena [place] Supervision of Rc Referring In Womens elderly 0-201 [place]. 700 Provider: Health TO, multigravida, 8 Medical Humaira PO Box first Center [facility], 1522, trimesterEncntr [place] Stiles, screen for 120, Medical [place], infections w sexl [place], [place] [id number], mode of [place], [address], [place] transmissEncounte [id number] [place], tel:+ r for screening , [place]. 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 700 Provider: Romana ARIZA, (routine) w/o abn 6 Medical [place] PO Box findingsFamily [place] Pamela Farnsworth, 1522, history of endo, Billy Stiles, nutritional and 120, Medical [place], [facility] [id number], diseases[facility] Center[facility] [place], [address], [place] history of endo, [id number] [place], tel: nutritional and , [place]. [place], metabolic tel: tel: diseases [phone] Morena [place] Nov- Rc Referring In Womens Follow-Up, [place]. 700 Provider: Romana ARIZA, Routine 5 Medical [place] PO Box [place] Pamela Farnsworth, 1522, Billy Stiles, 120, Medical Shemar [facility] [id number], [place], [address], [id number] [place], tel: , . [place], tel: tel: [phone] Morena [place] Routine Care, Oct-0 Rc Referring In Womens [id number] - [place]. 700 Provider: Romana ARIZA, weeks gestation 5 Medical [place] PO Box of Center Rc Last, 1522, Billy Stiles, 120, Medical Shemar [facility] [id number], [place], [facility] 120, [place] [id number] [place], tel: , . [place], tel: [phone]. [phone] tel:[phone] Morena [place] Sep-0 Rc Referring In Womens 3- [place]. 700 Provider: Romana ARIZA, 5 Medical [place] PO Box Center Rc Last, 1522, Billy Stiles, 120, Medical Shemar [facility] [id number], [place], Billy 120, [place] [id number] [place], tel: , . [place], tel: [phone]. [phone] tel:[phone] Morena [place] Sep-1 Rc In Womens 5-200 [place]. 700 [facility], 9 Medical PO Box [place] 1522, , Billy Polanco, 120, [place], [place], [id number], [place] [id number] tel: , [place]. tel: [phone] Morena [place] Sep-0 D[place] In Womens 2-200 Noemi. [facility], 8 700 PO Box [facility] 1522, Center Dr Collin, Billy [place], 120, [id number], [place], [place], tel: [phone] , [place]. tel: [phone] Family History Family Member Diagnosis Age At Onset Sister Gynecological Problem Mother Hypercholesterolemia Paternal Grandmother Diabetes mellitus Immunizations Vaccine Date Status Comments Influenza, injectable, completed Source: New Immunization Record quadrivalent, preservative free, 3 yrs or older Tdap completed Source: New Immunization Record Payers Payer name Insurance type Covered republican ID Authorization(s) [facility] [id number] [facility] [id number] [facility] [id number] Social History Type Description Quantity Date Captured Unknown Vital Signs Date / Height Weight BMI Pulse Blood Temperature Respiratory Body Head BMI Time: Rate Pressure Rate Surface Circumference percentile Area Unknown Chief Complaint And Reason For Visit Unknown Chief Complaint And Reason For Visit Reason For Referral Reason For Referral Unknown Plan Of Care Date Type Action Status Appointment Sharri Corona BOOKED Future Order: Radiology Order OB Detailed Complete Ultrasound Ordered ([id number]) Future Order: Lab Order Pap Smear With [...]
--- OUTSIDE RECORDS SUMMARY | 2017-10-20 06:19 | External Medical Summary | Continuity of Care Document ---
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 Results Test Name Date and Time Measure Units Reference Range Abnormal Flag Comments Unknown Advance Directives Directive Yes / No Effective Date File Name Unknown Encounters Encounter Practice Location Reason(s) Diagnoses Date Provider Care Team Description For Visit Members Morena [place] Supervision of Rc Referring In Womens elderly 2-201 700 Provider: Health TO, multigravida, 8 Medical Humaira PO Box third [id number] [facility], 1522, weeks gestation Billy St[place] 700 [place], of 120, Medical [place], [facility] [id number], [place], [address], [id number] [place], tel:+[phone] , [place]. [place], tel: tel:[phone] Morena [place] Supervision of Fernando-1 Rc Referring In Womens Ultrasound elderly 2-201 [place]. 700 Provider: Health TO, multigravida, 8 Medical Humaira PO Box third [facility], 1522, trimesterPlacenta Billy Stiles, previa specified 120, Medical [facility], as w/o [place] [id number], hemorrhage, third [place], [address], [place] weeks [id number] [place], tel:+[phone] gestation of , [place]. [place], tel: tel:[phone] Morena [place] Supervision of Salvador-2 Rc Referring In Womens elderly 8-201 [place]. 700 Provider: Romana ARIZA multigravida, 8 Medical Hum[place]a PO Box third Center [facility], 1522, trimesterPlacenta Billy Stiles, previa specified 120, Medical [facility], as w/o [place], [place] [id number], hemorrhage, third [place], [address], [place] weeks [id number] [place], tel:+ gestation of , [place]. [place], tel: tel:[phone] Morena [place] Supervision of Salvador- Rc Referring In Womens elderly 4-201 [place]. 700 Provider: Romana ARIZA, multigravida, 8 Medical [place] PO Box third [id number] Center [facility], 1522, weeks gestation Billy Stiles, of 120, Medical Shemar [facility] [id number], [place], [address], [place] [id number] [place], tel:+ , [place]. [place], tel: tel:[phone] Morena [place] Placenta previa May-1 Rc Referring In Womens specified as w/o 7-201 [place]. 700 Provider: Romana ARIZA hemor, second 8 Medical Humaira PO Box [id number] weeks Center [facility], 1522, gestation of Billy Stiles, 120, Medical [place]mar [facility] [id number], [place], [address], [place] [id number] [place], tel: , [place], [address]. tel: tel:[phone] Morena [place] Placenta previa Apr-1 Rc Referring In Womens specified as w/o 9-201 [place]. 700 Provider: elis Beavers, second 8 Medical [place] PO Box [id number] weeks [place] [facility], 1522, gestation of Billy Stiles, 120, Medical [place], [facility] [id number], [place], [address], [place] [id number] [place], tel: , [place], [address]. tel: tel:[phone] Morena [place] Supervision of Apr-1 Rc Referring In Womens Ultrasound elderly 9-201 [place]. 700 Provider: Romana ARIZA, alannagravida, 8 Medical [place]a PO Box second [facility], 1522, [id number] weeks Billy Stiles, gestation of 120, Medical [place], [place], [place] [id number], [place], [address], [place] [id number] [place], tel: , [place], [address]. tel: tel:[phone] Morena [place] Supervision of Mar-2 Rc Referring In Womens elderly 0-201 [place]. 700 Provider: Romana ARIZA, multigravida, 8 Medical [place] PO Box second [facility], 1522, [id number] weeks Billy Stiles, gestation of 120, Medical [place], [place], [place] [id number], [place], [address], [place] [id number] [place], tel: , [place], [address] tel: tel:[phone] Morena [place] Ot Mar-1 Sobbing Referring In Womens related 9-201 [place]. Provider: Romana ARIZA, conditions, 8 [facility] Humaira PO Box second [facility], 1522, [id number] weeks Center Garcia Polanco, gestation of Drive, Medical [place], Suite [address] [id number], 120, [address], [place], [place]: [place], [address], tel:+316 [place]. [id number] tel: [phone] Morena [place] Supervision of Apr- Rc Referring In Womens elderly [place]. [facility] Provider: Romana ARIZA, multigravida, 8 Medical [place] PO Box first [facility], 1522, weeks gestation Billy Stilesta, of 120, Medical [place] [address] [id number], [place], [address], [place] [id number] [place], tel: , [place]. [place], tel: tel:+ [phone] Morena [place] Supervision of Rc Referring In Womens elderly 0- [place]. 700 Provider: Romana ARIZA, multigravida, 8 Medical [place] PO Box first [facility] 1522, trimesterEncntr [place] St[place], screen for 120, Medical [facility], infections w sexl [place] [place] [id number], mode of [place], [address], [place] transmissEncounte [id number] [place], tel: r for screening , [place]. 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 700 Provider: Romana ARIZA, (routine) w/o abn 6 Medical [place] PO Box findingsFamily [facility] 1522, history of endo, Billy Stiles, nutritional and 120, Medical [facility], metabolic [place] [place] [id number], diseasesFamily [place], [address], [place] history of endo, [id number] [place], tel:+2 nutritional and , [place]. [place], metabolic tel: tel:[phone] diseases [phone] Morena [place] Nov- Rc Referring In Womens Follow-Up, [place]. 700 Provider: Health TO, Routine 5 [facility] Pamela Farnsworth, 1522, , [facility] Garcia Polanco, 120, Medical Shemar [facility] [id number], [place], [address], [place] [id number] [place], tel:+ , [place]. [facility], [address]. tel: tel: [phone] Morena [place] Routine Care, Oct-0 Rc Referring In Womens [id number] 1-201 [place]. 700 Provider: Health TO, weeks gestation 5 [facility] of Center Rc Last, 1522, , [facility] Garcia Polanco, 120, Medical [place], [facility] [id number], [place], [facility] 120, [place] [id number] [place], tel: , [place]. [place], tel: [phone]. [id number] tel:[phone] Morena [place] Sep-0 Rc Referring In Womens 3-201 [place]. 700 Provider: Health TO, 5 [facility] Rc Last, 1522, Billy Stiles, 120, Medical Shemar [facility] [id number], [place], [facility] 120, [place] [id number] [place], tel: , [place]. [place], tel: [phone]. [phone] tel:[phone] Morena [place] Sep-1 Rc In Womens 5-200 [place]. 700 Health TO, 9 [facility] Narda, Billy Stiles, [facility], Shemar RAWLS, [id number], [place], [place] [id number] tel: , [place]. tel: [phone] Morena [place] Sep-0 [place]yer In Womens 2-200 Noemi. Health TO, [address] [place], [place] [address], Del[address]ine [address] Dr, [facility], 120, [id number], [place], [facility], tel: [phone] , [place]. tel: [phone] Family History Family Member Diagnosis Age At Onset Sister Gynecological Problem Mother Hypercholesterolemia Paternal Grandmother Diabetes mellitus Immunizations Vaccine Date Status Comments Influenza, injectable, completed Source: New Immunization Record quadrivalent, preservative free, 3 yrs or older Tdap completed Source: New Immunization Record Payers Payer name Insurance type Covered republican ID Authorization(s) [employer] [place] [id number] [employer] [place] [id number] [employer] [place] [id number] Social History Type Description Quantity Date Captured Alcohol Use Details No Caffeine Use Details Unknown Tobacco Use Status Unknown Smoking Status Never smoker Vital Signs Date / Height Weight BMI Pulse Blood Temperature Respiratory Body Head BMI Time: Rate Pressure Rate Surface Circumference percentile Area 181.90 32.1 lbs 2 mm[Hg] 9:01 kg/m AM eter (2) Chief Complaint And Reason For Visit Unknown Chief Complaint And Reason For Visit Reason For Referral Reason For Referral Unknown Plan Of Care Date Type Action Status Appointment Sharri Corona BOOKED Appointment Sharri Corona BOOKED Appointment Sharri Corona BOOKED Future Order: Radiology Order OB Detailed Complete Ultrasound Ordered ([id number]) Future Order: Radiology Order Ultrasound OB Follow-up ([id number]) Ordered Future Order: Lab Order Pap Smear [...]
--- OUTSIDE RECORDS SUMMARY | 2017-10-20 06:19 | External Medical Summary | Continuity of Care Document ---
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 700 Provider: elis Beavers, [facility] 8 Medical Humaira [address] [id number] weeks [facility] [place], 1522, gestation of Billy Stiles, 120, Medical [facility] [id number], [place], [address], [id number] Shemar, tel:+2 , . [place], [id number]. [id number] tel: tel:[phone] Morena Staton Supervision of Jun- Rc Referring In Womens Ultrasound elderly 9-201 [place]. 700 Provider: robe Beavers, 8 Medical Humaira PO Box [facility], 1522, [email or web address] weeks Billy Stiles, gestation of 120, Medical [place], [facility] [id number], [place], [address], [id number] Shemar, tel:2 , . [place], [address]. [address] tel: tel:[phone] Morena [place]on Supervision of May- Rc Referring In Womens elderly 0-201 [place]. 700 Provider: robe Beavers, 8 Medical Humaira PO Box [facility], 1522, [id number] weeks Billy Stiles, gestation of 120, Medical [place], [facility] [id number], [place], [address], [place] [id number] [place], tel: , [place], [address] tel: tel: [phone] Morena Staton Oth Mar- Sobbing Referring In Womens related 9- [place]. Provider: Romana ARIZA, conditions, 8 [facility] Humaira PO Box second [facility], 1522, [id number] weeks Center Garcia Polanco, gestation of Drive, Medical [place], [address] [id number], 120, [address], [place], [place]: [place], [address], tel: [place]. [phone] tel: [phone] Morena Staton Supervision of Rc Referring In Womens elderly - [place] [address] Provider: Romana ARIZA, multigravida, 8 Medical Humaira PO Box first [email or web address] Center [facility], 1522, weeks gestation Billy St[place], of 120, Medical Shemar [facility] [id number], [place], [address], [place] [id number] [place], tel: , . [place], [address] tel: tel: [phone] Morena Staton Supervision of Mar- Rc Referring In Womens elderly 0-201 [place] [address] Provider: Romana ARIZA, multigravida, 8 Medical Humair[place] PO Box first [facility] [place], 1522, trimesterEncntr Dr [facility] Garcia [place], screen for 120, Medical [place], infections w sexl [place], [place] [id number], mode of [place], [address], transmissEncounte [id number] [place], tel: r [place] , [place], [address] for oth tel: tel: infec/parastc [phone] diseasesEncounter for suprvsn of normal , first trimesterEncounte r For Other Specified Screening9 weeks gestation of Morena Staton Encntr for boot turner Sep-2 Rc Referring In Womens exam (general) 7- [facility] 700 Provider: Romana ARIZA, (routine) w/o abn 6 Medical Humair[place] PO Box [facility] Daja, 1522, history of endo, [place], nutritional and 120, Medical [place], metabolic [place], [place] [id number], [facility], [address], [place] history of endo, [id number] [place], tel:+ [place] , [place], [address] metabolic tel: tel:[phone] Morena [place]on Nov-1 Rc Referring In Womens Follow-Up, 7- [place]. 700 Provider: Health TO, Routine 5 [facility] [place] Sandra Daja, 1522, [place], 120, Medical Shemar [facility] [id number], [place], [address], [place] [id number] She[place], tel: , [place]. [place], tel: tel: [phone] Morena Staton Routine Care, Oct-0 Rc Referring In Womens [id number] 1-201 [place]. 700 Provider: Romana ARIZA, weeks gestation 5 [facility] of Center Rc Last, 1522, [place], 120, Medical Shemar RAWLS, [place] [id number], [place], [facility] 120, [place] [id number] Shemar, tel: , . [place], tel: [phone]. [id number] tel:[phone] Morena Staton Sep-0 Rc Referring In Womens 3-201 [place]. 700 Provider: Romana ARIZA, 5 [facility] Rc Last, 1522, [place], 120, Medical Shemar RAWLS, [place] [id number], [place], [facility] 120, [place] [id number] Shemar, tel: , . [place], tel: [phone]. [id number] tel:[phone] Morena Staton Sep-1 Rc In Womens 5-200 [place]. 700 Health TO, 9 [facility] PO Box Center 1522, [place], 120, Shemar RAWLS [id number], [place], [place] [id number] tel: , [place]. tel: [phone] Associates Shemar Sep-0 [facility] In Womens 2-200 [facility], 8 700 PO [facility] 1522, [place] [address] [place], [facility] [place], 120, [id number], [place], [place], tel:[phone] , [place]. tel: [phone] Family History Family Member Diagnosis Age At Onset Sister Gynecological Problem Mother Hypercholesterolemia Paternal Grandmother Diabetes mellitus Immunizations Vaccine Date Status Comments Influenza, injectable, completed Source: New Immunization Record quadrivalent, preservative free, 3 yrs or older Tdap completed Source: New Immunization Record Payers Payer name Insurance type Covered alliance party ID Authorization(s) [facility] BL [id number] [facility] [place] BL [id number] [facility] [id number] Social History Type Description Quantity Date Captured Alcohol Use Details No Caffeine Use Details Unknown Tobacco Use Status Unknown Smoking Status Never smoker Vital Signs Date / Height Weight BMI Pulse Blood Temperature Respiratory Body Head BMI Time: Rate Pressure Rate Surface Circumference percentile Area 177.70 31.3 / lbs 8 mm[Hg] 10:21 kg/m AM eter (2) Chief Complaint And Reason For Visit Unknown Chief Complaint And Reason For Visit Reason For Referral Reason For Referral Unknown Plan Of Care Date Type Action Status Appointment Sharri Corona BOOKED Future Order: Radiology Order OB Detailed Complete Ultrasound Ordered ([id number]) Future Order: Lab Order Pap Smear With [...]
--- OUTSIDE RECORDS SUMMARY | 2017-10-20 06:19 | External Medical Summary | Continuity of Care Document ---
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) - (routine) w/o abn findings Family history of endo, nutritional and metabolic diseases Routine Care, Multigravida 38 weeks gestation of - Active Procedures Procedure Date OB Visit No Charge Automated hemogram (CBC) Metabolic panel, comprehensive Venpnctr fngr/heel/ear stick routne Results Test Name Date and Time Measure Units Reference Range Abnormal Flag Comments Panel Description: CBC With Differential/Platelet WBC 09:39:00 9.0 x10E3/uL 3.4-10.8 RBC 09:39:00 3.70 x10E6/uL 3.77-5.28 L Hemoglobin 09:39:00 11.0 g/dL 11.1-15.9 L Hematocrit 09:39:00 32.9 % 34.0-46.6 L MCV 09:39:00 89 fL 79-97 MCH 09:39:00 29.7 pg 26.6-33.0 MCHC 09:39:00 33.4 g/dL 31.5-35.7 RDW 09:39:00 14.4 % 12.3-15.4 Platelets 09:39:00 280 x10E3/uL 150-379 Neutrophils 09:39:00 74 % Not Estab. Lymphs 09:39:00 21 % Not Estab. Monocytes 09:39:00 4 % Not Estab. Eos 09:39:00 1 % Not Estab. Basos 09:39:00 0 % Not Estab. Immature Cells 09:39:00 Neutrophils (Absolute) 09:39:00 6.6 x10E3/uL 1.4-7.0 Lymphs (Absolute) 09:39:00 1.9 x10E3/uL 0.7-3.1 Monocytes(Absolute) 09:39:00 0.3 x10E3/uL 0.1-0.9 Eos (Absolute) 09:39:00 0.1 x10E3/uL 0.0-0.4 Baso (Absolute) 09:39:00 0.0 x10E3/uL 0.0-0.2 Immature Granulocytes 09:39:00 0 % Not Estab. Immature Grans (Abs) 09:39:00 0.0 x10E3/uL 0.0-0.1 NRBC 09:39:00 Hematology Comments: 09:39:00 Panel Description: Comp. Metabolic Panel (14) Glucose, Serum 09:39:00 123 mg/dL 65-99 H BUN 09:39:00 6 mg/dL 6-20 Creatinine, Serum 09:39:00 0.66 mg/dL 0.57-1.00 eGFR If NonAfricn Am 09:39:00 115 mL/min/1.73 >59 eGFR If Africn Am 09:39:00 132 mL/min/1.73 >59 BUN/Creatinine Ratio 09:39:00 9 9-23 Sodium, Serum 09:39:00 139 mmol/L 134-144 Potassium, Serum 09:39:00 4.7 mmol/L 3.5-5.2 Chloride, Serum 09:39:00 104 mmol/L 96-106 Carbon Dioxide, Total 09:39:00 21 mmol/L 18-29 Calcium, Serum 09:39:00 9.4 mg/dL 8.7-10.2 Protein, Total, Serum 09:39:00 6.8 g/dL 6.0-8.5 Albumin, Serum 09:39:00 4.0 g/dL 3.5-5.5 Globulin, Total 09:39:00 2.8 g/dL 1.5-4.5 A/G Ratio 09:39:00 1.4 1.2-2.2 Bilirubin, Total 09:39:00 0.5 mg/dL 0.0-1.2 Alkaline Phosphatase, S 09:39:00 62 IU/L 39-117 AST (SGOT) 09:39:00 17 IU/L 0-40 ALT (SGPT) 09:39:00 16 IU/L 0-32 Advance Directives Directive Yes / No Effective Date File Name Unknown Encounters Encounter Practice Location Reason(s) Diagnoses Date Provider Care Team Description For Visit Members Morena Staton Supervision of Rc Referring In Womens elderly 0-201 [place]. 700 Provider: alanna Beaversgravipayton, 8 Medical [place]aira PO Box second [id number] Center [facility], 1522, weeks gestation of Billy Stilesch[place], 120, Medical Shemar [facility] [id number], [place], [address], [id number] Shemar, tel:+ , [place], [address]. tel: tel:[phone] Morena Staton Ot Sobbing Referring In Womens related conditions, [place]. Provider: Romana ARIZA, second [id number] 8 700 Humaira PO Box weeks gestation of [facility], 1522, Center [address] [place] [address], [facility], [facility] Center [id number], [facility] [place], [address], Shemar [place]on, tel:+ [facility] [place], [address]. [address], tel:+ [place]. [phone] tel: [phone] Morena Staton Supervision of Apr- Rc Referring In Womens elderly 7-201 [place]. 700 Provider: alanna Beaversgravida, first 8 Medical Humaira PO Box [id number] weeks Center [facility]aja, 1522, gestation of Billy [place], 120, Medical Shemar [facility] [id number], [place], [address], [place] [id number] Shemar, tel: , [facility], [address]. tel: tel:[phone] Morena Staton Supervision of Mar-3 Rc Referring In Womens elderly 0-201 [place]. 700 Provider: alanna Beaversgravida, first 8 Medical Humaira PO Box trimesterEncntr [facility], 1522, screen for Billy [place], infections w sexl 120, Medical [place], mode of Shemar Krebs [id number], transmissEncounter [place], [address], [place] for screening for [id number] Shemar, tel:+ ot infec/parastc , . 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 [place], metabolic diseases tel: tel:[phone] Morena Staton Jan- Rc Referring In Womens Follow-Up, Routine [place]. [place] Provider: Romana ARIZA, 5 [facility], 1522, Billy [place], 120, Medical Shemar [facility] [id number], [place], [address], [place] [id number] Shemar, tel: , [place]. [place], tel: tel:[phone] Morena Staton Routine Care, Oct-0 Rc Referring In Womens [id number] [place]. Zelaya Provider: Romana ARIZA, weeks gestation of 5 [facility] Rc R, 1522, Billy [place], 120, Medical Shemar [facility] [id number], [place], [facility] 120, [place] [id number] [place], tel: , [place]. [place], tel: [phone]. [id number] tel:[phone] Associates Shemar Sep-0 Rc Referring In Womens 3-201 [place]. 700 Provider: Health PA, 5 Medical [facility] Box [address], [place] [address] [place], 120, Medical [place], [facility] [id number], [place], Billy 120, [place] [id number] [place], tel: , [place]. [place], tel: [phone]. [id number] tel:[phone] Associates Shemar Sep-1 Rc In Womens 5-200 [place]. 700 Health PA, 9 Medical [facility] Narda, , [facility] [place], 120, [place], [place], [id number], [place], [place] [id number] tel: , [place]. tel: [phone] Associates Shemar Sep-0 [place] In Womens 2-200 Noemi. Health [place], 8 700 [place] [address], [address] [place], [facility], 120, [id number], [place], [place], tel: [phone] , [place]. tel: [phone] Family History Family Member Diagnosis Age At Onset Sister Gynecological Problem Mother Hypercholesterolemia Paternal Grandmother Diabetes mellitus Immunizations Vaccine Date Status Comments Influenza, injectable, completed Source: New Immunization Record quadrivalent, preservative free, 3 yrs or older Tdap completed Source: New Immunization Record Payers Payer name Insurance type Covered democrat ID Authorization(s) [facility] [id number] [facility] [id number] [facility] [id number] Social History Type Description Quantity Date Captured Alcohol Use Details No Caffeine Use Details Unknown Tobacco Use Status Never smoked tobacco Smoking Status Never smoker Vital Signs Date / Height Weight BMI Pulse Blood Temperature Respiratory Body Head BMI Time: Rate Pressure Rate Surface Circumference percentile Area 172.90 30.5 108/76 2018 lbs 3 mm[Hg] 9:19 kg/m AM eter (2) Chief Complaint And [...]
--- OUTSIDE RECORDS SUMMARY | 2017-10-20 06:19 | External Medical Summary | Continuity of Care Document ---
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 700 Provider: Romana ARIZA, multigravida, 8 Medical [place] PO Box second Center [facility], 1522, weeks gestation of Billy Stiles [place], 120, Medical [facility] [id number], [place], [address], [id number] Shemar, tel:+ , [place], [address]. tel: tel: [phone] Morena Staton Ot May- Sobbing Referring In Womens related conditions, [place]. Provider: Romana ARIZA, second [id number] 8 700 [place]aira PO Box weeks gestation of [facility], 1522, Center [address] [place] [address], [facility], [facility] Center [id number], [facility], [address], Shemar [place], [place]: [place], [address], tel: [place]. 58[address]149 tel: [phone] Morena Staton Supervision of Apr- Rc Referring In Womens elderly 7-201 [place]. 700 Provider: Romana ARIZA, multigravida, first 8 Medical [place] PO Box weeks Center [facility], 1522, gestation of Billy Stilesta, 120, Medical Shemar [facility] [id number], [place], [address], [place] [id number] Shemar, tel: , [facility], [address]. tel: tel:[phone] Morena Staton Supervision of Mar- Rc Referring In Womens elderly 0-201 [place]. 700 Provider: Romana ARIZA, multigravida, first 8 Medical [place] PO Box trimesterEncntr [facility], 1522, screen for Billy [place], infections w sexl 120, Medical [place], mode of She[place] [id number], transmissEncounter [place], [address], [place] for screening for [id number] Shemar, tel:+ ot infec/parastc , . [place], . 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 700 Provider: Health TO, w/o abn 6 [facility] Pamela Farnsworth, 1522, history of endo, Billy [place], nutritional and 120, Medical [place], metabolic [facility] [id number], [facility], [address], [place] history of endo, [id number] Shemar, tel: nutritional and , [place]. [place], metabolic diseases tel: tel:[phone] Morena Staton Nov- Rc Referring In Womens Follow-Up, Routine [place]. 700 Provider: Romana ARIZA, 5 [facility] Pamela B, 1522, Billy St[place], 120, Medical [facility], [facility] [id number], [place], [address], [place] [id number] She[place], tel: , [place]. [place], tel: tel:[phone] Morena Staton Routine Care, Dec-0 Rc Referring In Womens [id number] [place]. 700 Provider: Romana ARIZA, weeks gestation of 5 [facility] Center Rc Last, 1522, Billy [place], 120, Medical [facility], [facility] [id number], [place], [facility] 120, [place] [id number] Shemar, tel: , . [place], tel: [phone]. [id number] tel:[phone] Morena Staton Sep-0 Rc Referring In Womens 3-201 [place]. 700 Provider: Health [place], 5 [facility] Box [place] Rc Last 1522, , [place] [address] [place], 120, Medical [place], [facility] [address] [id number], [place], [facility] 120, [place] [id number] [place], tel: , [place]. [place], tel: [phone]. [id number] tel:[phone] Morena Staton Sep-1 Rc In Womens 5-200 [place]. 700 Health [place], 9 Medical [facility] 152Rosi, , Billy [place], 120, Shemar RAWLS, [id number], [place], [place] [id number] tel: , [place]. tel: [phone] Morena Staton Sep-0 [place] In Womens 2-200 Noemi. Health [place], 8 700 [place] [address], [address] [address] [place], [facility], [facility], [id number], [place], [facility], tel: [phone] , [place]. tel: [phone] Family History Family Member Diagnosis Age At Onset Sister Gynecological Problem Mother Hypercholesterolemia Paternal Grandmother Diabetes mellitus Immunizations Vaccine Date Status Comments Influenza, injectable, completed Source: New Immunization Record quadrivalent, preservative free, 3 yrs or older Tdap completed Source: New Immunization Record Payers Payer name Insurance type Covered green party ID Authorization(s) [facility] [id number] [facility] [id number] [facility] [id number] Social History Type Description Quantity Date Captured Alcohol Use Details No Caffeine Use Details Unknown Tobacco Use Status Never smoked tobacco Smoking Status Never smoker Vital Signs Date / Height Weight BMI Pulse Blood Temperature Respiratory Body Head BMI Time: Rate Pressure Rate Surface Circumference percentile Area 173.00 30.5 121/ -2018 lbs 5 mm[Hg] 10:31 kg/m AM eter (2) Chief Complaint And Reason For Visit Unknown Chief Complaint And Reason For Visit Reason For Referral Reason For Referral Unknown Plan Of Care Date Type Action Status Appointment Sharri Corona BOOKED Appointment Sharri Corona BOOKED Future Order: Lab Order Pap Smear With HPV Reflex If ASCUS Ordered ([id number]), Collected on: Future Order: Lab Order Pap Smear With [...]
--- OUTSIDE RECORDS SUMMARY | 2017-10-20 06:19 | External Medical Summary | Continuity of Care Document ---
:1980 Author Organization [facility] Allergies Active Description Code Type Severity Reaction Onset Reported/ Identified Relationship Clinical to Patient Status Yes No Known 43239 3 N/A N/A Drug 0 Allergies Yes No Known Aller Unknown N/A 10/18/2017 Drug gy Allergies Medications Medication Packaging Start Date Stop Date Route Dosage Sig Iron 12/04/2014 PO 325 mg WB 12/18/2014 PO 800 mg Ibuprofen Q8H 12/18/2014 PO 1 each Hydrocodon-Aceta Q4H minophen 5-325 10/18/2017 PO 2,000 unit Vitamin D3 DAILY Tums 10/18/2017 PO CHEW 500 mg Q2-4HPRN 10/18/2017 PO 150 mg Zantac DAILY Problems Date Dx Attending Type Code Diagnosis Diagnosed By Coded 11/16/2016 W H52.03 Hypermetropia, bilateral 11/16/2016 W H52.223 Regular astigmatism, bilateral 04/11/2017 Michael Tatum O09.521 Supervision of elderly multigravida, first trimester 04/11/2017 Michael Tatum Z34.81 Encounter for suprvsn of normal , first trimester 04/11/2017 Michael Tatum Z3A.09 9 weeks gestation of 04/11/2017 Michael Tatum O09.521 Supervision of elderly multigravida, first trimester 04/11/2017 Michael Tatum Z34.81 Encounter for suprvsn of normal , first trimester 04/11/2017 Michael Tatum Z3A.09 9 weeks gestation of 06/29/2017 Michael Tatum O09.522 Supervision of elderly multigravida, second trimester 06/29/2017 Michael Tatum Z3A.20 20 weeks gestation of 09/21/2017 Michael Tatum O09.523 Supervision of elderly multigravida, third trimester 09/21/2017 Michael Tatum O44.03 Placenta 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 hemorrhage, third trimester 09/21/2017 Michael Tatum W Z3A.32 32 weeks gestation of 09/28/2017 Michael Tatum W O09.523 Supervision of elderly multigravida, third trimester 09/28/2017 Michael Tatum W 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, third trimester 09/28/2017 Michael Tatum W Z3A.33 33 weeks gestation of 10/04/2017 Michael Tatum W O09.523 Supervision of elderly multigravida, third trimester 10/04/2017 Michael Tatum W 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, third trimester 10/04/2017 Michael Tatum W Z3A.34 34 weeks gestation of 10/12/2017 W O09.523 Supervision of elderly multigravida, third trimester 10/12/2017 W 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, third trimester 10/12/2017 W Z3A.35 35 weeks gestation of 10/19/2017 W 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, third trimester 10/19/2017 W Z3A.36 36 weeks gestation of 10/19/2017 W 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, third trimester 10/19/2017 W Z3A.36 36 weeks gestation of 10/19/2017 W 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, third trimester 10/19/2017 W Z3A.36 36 weeks gestation of 10/19/2017 W 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, third trimester 10/19/2017 W Z3A.36 36 weeks gestation of 10/19/2017 W 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, third trimester 10/19/2017 W Z3A.36 36 weeks gestation of Procedures Code Description [place] [address] DTC after 12/16/2014 delivery 96743 Routine 12/16/2014 obstetric care 66531 EYE EXAM, NEW 11/16/2016 PATIENT V0015 Protection 11/16/2016 Plan Level 1 V2020 Vision svcs 11/16/2016 frames purchases V2103 Spherocylindr 11/16/2016 4.00d/12-2.00d V2750 11/16/2016 Anti-reflective coating V2782 Lens, 11/16/2016 1.54-1.65 p/1.60-1.79g 14344 OB Visit No 04/11/2017 Charge 84147 Immuniz 04/11/2017 admnin, 1 vac, sngl/combo 23856 Flu Vaccine - 04/11/2017 Quadrivalent 93428 OB US, 06/29/2017 DETAILED, SNGL FETUS 27701 Ultrasnd preg 09/21/2017 uterus, flwup/repeat 82894 biophys 09/28/2017 prfl w/o nstress test 15229 UMBILICAL 09/28/2017 ARTERY ECHO 32644 biophys 10/04/2017 prfl w/o nstress test 38115 UMBILICAL 10/04/2017 ARTERY ECHO 48587 biophys 10/12/2017 prfl w/o nstress test 49058 UMBILICAL 10/12/2017 ARTERY ECHO 12585 Immuniz 10/12/2017 admnin, 1 vac, sngl/combo 64716 TDAP VACCINE 10/12/2017 >7 IM 61650 biophys 10/19/2017 prfl w/o nstress test 21850 UMBILICAL 10/19/2017 ARTERY ECHO 09548 OB Visit No 10/19/2017 Charge Results There is no data. Encounters ACCT No. Visit Discharge Status Pt. Type Provider Facility Loc./Unit Complaint Date/Time [id number] 10/04/2017 10/04/2017 [facility] Outpatient Rc, 09:45:00 23:59:59 Michael Last [id number] 10/04/2017 10/04/2017 [facility] Outpatient [facility]c, 09:15:00 23:59:59 Michael Last [id number] 09/28/2017 09/28/2017 [facility] Outpatient Rc, 13:15:00 23:59:59 Michael Last [id number] 09/28/2017 09/28/2017 [facility] Outpatient Rc, 12:45:00 23:59:59 Michael Last [id number] 09/21/2017 09/21/2017 [facility] Outpatient Rc, 20:59:00 23:59:59 Michael Last [id number] 09/21/2017 09/21/2017 [facility] Outpatient Rc, 08:50:00 23:59:59 Michael Last [id number] 09/21/2017 09/21/2017 [facility] Outpatient Rc, 08:15:00 23:59:59 Michael Last [id number] 09/07/2017 09/07/2017 [facility] Outpatient Rc, 09:00:00 23:59:59 Michael Last [id number] 08/24/2017 08/24/2017 [facility] Outpatient Rc, 09:00:00 23:59:59 Michael Last [id number] 07/27/2017 07/27/2017 [facility] Outpatient Rc, 09:00:00 23:59:59 Michael Last [id number] 06/29/2017 06/29/2017 [facility] Outpatient Rc, 10:10:00 23:59:59 Michael Last [id number] 06/29/2017 06/29/2017 [facility] Outpatient Rc, 09:45:00 23:59:59 Michael Last [id number] 06/21/2017 06/21/2017 [facility] Outpatient Rc, 08:56:00 23:59:59 Michael Last [id number] 05/30/2017 05/30/2017 [facility] Outpatient Rc, 09:15:00 23:59:59 Michael Last [id number] 05/29/2017 05/29/2017 [facility] Outpatient Sobbing, 09:10:00 23:59:59 Aubrey Stafford [id number] 05/09/2017 05/09/2017 [facility] Outpatient Rc, 10:20:00 23:59:59 Michael Last [id number] 04/11/2017 04/11/2017 [facility] Outpatient Rc, 10:15:00 23:59:59 Michael Last [id number] 03/31/2017 03/31/2017 [facility] Outpatient Rc, 09:46:00 23:59:59 Michael Last [id number] 02/02/2016 02/02/2016 [facility] Outpatient Rc, 09:30:00 23:59:59 Michael Last [id number] 12/20/2015 12/20/2015 [facility] Outpatient Rc, 10:47:00 23:59:59 Michael Last [id number] 12/08/2015 12/08/2015 [facility] Outpatient Rc, 09:30:00 23:59:59 Michael Last [id number] 09/04/2015 09/04/2015 [facility] Outpatient Rc, 10:43:00 23:59:59 Michael Last [id number] 01/27/2015 01/27/2015 [facility] Outpatient Rc, 09:15:00 23:59:59 Michael Last [id number] 12/11/2014 12/11/2014 [facility] Outpatient Rc, 08:50:00 23:59:59 Michael Last [id number] 12/04/2014 12/04/2014 [facility] Outpatient Rc, 08:40:00 23:59:59 Michael Last [id number] 11/27/2014 11/27/2014 [facility] Outpatient Rc, 08:40:00 23:59:59 Michael Last [id number] 11/13/2014 11/13/2014 [facility] Outpatient Rc, 08:40:00 23:59:59 Michael Last [id number] 10/30/2014 10/30/2014 [facility] Outpatient Rc, 08:30:00 23:59:59 Michael Last [id number] 10/19/2017 Document 09:10:00 Registration [id number] 10/19/2017 Document 08:45:00 Registration [id number] 10/12/2017 Document 09:00:00 Registration [id number] 10/12/2017 Document 08:45:00 Registration [id number] 12/16/2014 Document 21:43:00 Registration [id number] 11/16/2016 Document 10:00:00 Registration [id number] 11/16/2016 Document 00:00:00 Registration [id number] 10/13/2017 Document [id number] 09:46:00 Registration
--- OUTSIDE RECORDS SUMMARY | 2017-10-20 06:19 | External Medical Summary | Continuity of Care Document ---
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 700 Provider: elis Beavers, second 8 Medical [place] [address] [email or web address] weeks [place] Pamela , 1522, gestation of [place], 120, [facility] [id number], [place], [address], [id number] [place], tel:+2 , . [place], [id number]. [id number] tel: tel:[phone] Morena [place] Supervision of Jun- Rc Referring In Womens Ultrasound elderly 9-201 [place]. 700 Provider: robe Beavers, 8 Medical [place] PO Box [facility], 1522, [id number] weeks [place], gestation of 120, Medical [place], [facility] [id number], [place], [address], [place] [id number] [place], tel: , [place], [address]. 497140 tel: tel:[phone] Morena [place] Supervision of May-2 Rc Referring In Womens elderly 0-201 [place]. 700 Provider: robe Beavers, 8 Medical [place] PO Box [facility], 1522, [email or web address] weeks [place] St[place], gestation of 120, Medical [place], [facility] [id number], [place], [address], [place] [id number] [place], tel: , [place], [address] tel: tel: [phone] Morena [place] Oth Mar- Sobbing Referring In Womens related 9- [place]. Provider: Romana ARIZA, conditions, 8 [facility] Hum[facility]a PO Box second Medical [facility], 1522, [email or web address] weeks [place] Garcia [place], gestation of Drive, Medical [place], Suite Center [id number], 120, [address], [place], tel: [place], [address], tel:+ [place]. [phone] tel: [phone] Morena [place]on Supervision of Rc Referring In Womens elderly 7-201 [place] [address] Provider: Romana ARIZA, multigravida, 8 Medical [place] PO Box first [id number] Center [facility], 1522, weeks gestation Dr [facility] Garcia [place], of 120, Medical [place], [facility] [id number], [place], [address], [place] [id number] [place], tel: , . [place], [address] tel: tel: [phone] Morena [place]on Supervision of Mar-3 Rc Referring In Womens elderly 0-201 [place] [address] Provider: Romana ARIZA, multigravida, 8 Medical [place] PO Box first [facility], 1522, trimesterEncntr Dr Billy [place], screen for 120, Medical [place], infections w sexl [facility] [id number], mode of [place], [address], [place] transmissEncounte [id number] [place], tel: r for screening , [place]. 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, [address] metabolic tel: tel:[phone] diseases [phone] Morena Staton Nov- Rc Referring In Womens Follow-Up, 7- [place]. 700 Provider: Romana ARIZA, Routine 5 [facility] Pamela [place], 1522, [place], 120, Medical Shemar [facility] [id number], [place], [address], [place] [id number] [place], tel:+ , [place]. [place], tel: tel: [phone] Morena Staton Routine Care, Oct-0 Rc Referring In Womens [id number] 1-201 [place]. 700 Provider: Romana ARIZA, weeks gestation 5 [facility] Box of Center Rc Last, 1522, [place], 120, Medical Shemar RAWLS, [place] [id number], [place], [facility] 120, [place] [id number] [place], tel: , . [place], tel: [phone]. [id number] tel:[phone] Morena Staton Sep-0 Rc Referring In Womens 3-201 [place]. 700 Provider: Romana ARIZA, 5 [facility] Rc Last, 1522, [place], 120, Medical Shemar [facility] [id number], [place], [facility] 120, [place] [id number] [place], tel: , [place]. [place], tel: [phone]. [id number] tel:[phone] Morena Staton Sep-1 Rc In Womens 5-200 [place]. 700 Romana ARIZA, 9 [facility] PO Box Center 1522, [place], 120, She[place] RAWLS [id number], [place], [place] [id number] tel: , [place]. 8614[address] tel: [phone] Associates Shemar Sep- [place] In Womens 2-200 [facility], 8 700 PO [facility] 1522, [address] [place], [facility] [place], 120, [id number], [place], [place], tel: [phone] , [place]. tel: [phone] Family History Family Member Diagnosis Age At Onset Sister Gynecological Problem Mother Hypercholesterolemia Paternal Grandmother Diabetes mellitus Immunizations Vaccine Date Status Comments Influenza, injectable, completed Source: New Immunization Record quadrivalent, preservative free, 3 yrs or older Tdap completed Source: New Immunization Record Payers Payer name Insurance type Covered alliance party ID Authorization(s) [facility] [id number] [facility] [id number] [facility] [id number] Social History Type Description Quantity Date Captured [...] Radiology Order OB Detailed Complete Ultrasound Ordered ([id number]) Future Order: Lab Order Pap Smear With [...]
--- OUTSIDE RECORDS SUMMARY | 2017-10-20 06:19 | External Medical Summary | Continuity of Care Document ---
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) w/o 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 findings Family history of endo, nutritional and metabolic diseases Routine Care, Multigravida 38 weeks gestation of - Active Procedures Procedure Date Initial OB Visit No 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 Immuniz admnin, 1 vac, sngl/combo 19 Yrs + Flu Vaccine - Quadrivalent OB Panel With An HIV Venpnctr fngr/heel/ear stick routne Cult, bactr, grupo colonycnt, urine Infct antign, chlamydia trac, ampl Neisseria Gonorrhoeae, Amplification Cult, bactr, ident isolate, urine Results Test Name Date and Time Measure Units Reference Range Abnormal Flag Comments Panel Description: OBSTETRIC PANEL WHITE BLOOD CELL 10.1 Thousand/uL 3.8-10.8 N COUNT 11:14:00 RED BLOOD CELL 4.10 Million/uL 3.80-5.10 N COUNT 11:14:00 HEMOGLOBIN 11.9 g/dL 11.7-15.5 N 11:14:00 HEMATOCRIT 35.3 % 35.0-45.0 N 11:14:00 MCV 86.1 fL 80.0-100.0 N 11:14:00 MCH 29.0 pg 27.0-33.0 N 11:14:00 MCHC 33.7 g/dL 32.0-36.0 N 11:14:00 RDW 13.4 % 11.0-15.0 N 11:14:00 PLATELET COUNT 348 Thousand/uL 140-400 N 11:14:00 MPV 10.1 fL 7.5-12.5 N 11:14:00 ABSOLUTE 7403 cells/uL 5389-0259 N NEUTROPHILS 11:14:00 ABSOLUTE 2091 cells/uL 850-3900 N LYMPHOCYTES 11:14:00 ABSOLUTE 495 cells/uL 200-950 N MONOCYTES 11:14:00 ABSOLUTE 81 cells/uL 15-500 N EOSINOPHILS 11:14:00 ABSOLUTE 30 cells/uL 0-200 N BASOPHILS 11:14:00 NEUTROPHILS 73.3 % N 11:14:00 LYMPHOCYTES 20.7 % N 11:14:00 MONOCYTES 4.9 % N 11:14:00 EOSINOPHILS 0.8 % N 11:14:00 BASOPHILS 0.3 % N 11:14:00 ANTIBODY SCREEN, NO ANTIBODIES N RBC W/REFL ID, 11:14:00 DETECTED Reference range TITER AND AG No antibodies detected This assay is a screening test for the detection of red blood cell antibodies. The test is not to be used for pretransfusion screening or for the medical management of an alloimmunized . ABO GROUP A 11:14:00 RH TYPE RH(D) 11:14:00 POSITIVE RPR (DX) W/REFL NON-REACTIVE NON-REACTIV N TITER AND 11:14:00 E CONFIRMATORY TESTING HEPATITIS B NON-REACTIVE NON-REACTIV N SURFACE ANTIGEN 11:14:00 E RUBELLA ANTIBODY 4.62 index N Index (IGG) 11:14:00 Interpretation ----- <0.90 Not consistent with Immunity 0.90-0.99 Equivocal > or=1.00 Consistent with Immunity The presence of rubella IgG antibody suggests immunization or past or current infection withrubella virus.Test performed at [facility] [id number] [place] [address]Ajwrlsb r: GUME SCHOFIELD DO,MPH Panel Description: HIV 1/2 ANTIGEN/ANTIBODY,FOURTH GENERATION W/RFL HIV NON-REACTIVE NON-REACTIVE N HIV-1 antigen and HIV-1/HIV- 2 antibodies were AG/AB, 11:14:00 notdetected. There is no laboratory evidence of 4TH GEN HIVinfection. PLEASE NOTE: This information has been disclosed toyou from records whose confidentiality may beprotected by state law. If your state requires suchprotection, then the state law prohibits you frommaking any further disclosure of the informationwithout the specific written consent of the personto whom it pertains, or as otherwise permitted by law.A general authorization for the release of medical orother information is NOT sufficient for this purpose. For additional information please refer tohttp://education.[employer]/faq/EOH420(This link is being provided for informational/educational purposes only.) The performance of this assay has not been clinicallyvalidated in patients less than 2 years old. Test performed [place] [address]Director: GUME SCHOFIELD DO,MPH Panel Description: Thyrotropin [Units/volume] in Serum or Plasma TSH 11:14:00 1.04 mIU/L N Reference Range > or=20 Years 0.40-4.50 Ranges First trimester 0.26-2.66 Second trimester 0.55-2.73 Third trimester 0.43-2.91REPORT COMMENT:FASTING:NOTest [place] [address]Director: GUME SCHOFIELD DO,MPH Panel Description: Bacteria identified in Urine by Culture CULTURE, URINE, SEE NOTE CULTURE, URINE, ROUTINE MICRO ROUTINE 11:33:00 NUMBER: [id number] TEST STATUS: FINAL SPECIMEN SOURCE: URINE SPECIMEN QUALITY: ADEQUATE RESULT: Multiple organisms present, each less than 10,000 CFU/mL. These organisms, commonly found on external and internal genitalia, are considered to be colonizers. No further testing performed.REPORT COMMENT:RFASTING:UNKNOWNTest performed at [facility] [place] [id number]: GUME SCHOFIELD DO,MPH Panel Description: CHLAMYDIA/N. GONORRHOEAE RNA, TMA CHLAMYDIA NOT DETECTED NOT DETECTED N TRACHOMATIS RNA, 11:34:00 TMA NEISSERIA NOT DETECTED NOT DETECTED N GONORRHOEAE RNA, 11:34:00 TMA [id number] SEE NOTE This test was 11:34:00 performed using the APTIMA COMBO2 Assay([employer] The analytical performance characteristics of this assay, when used to test SurePath specimens havebeen determined by [employer]. REPORT COMMENT:FASTING:UNKNO WNTest [place] [address]Director: GUME SCHOFIELD DO,MPH Advance Directives Directive Yes / No Effective Date File Name Unknown Encounters Encounter Practice Location Reason(s) Diagnoses Date Provider Care Team Description For Visit Members Morena [place]on Supervision of Mar- Rc Referring In Womens elderly 0-201 [place]. 700 Provider: Romana ARIZA, multigravida, first 8 Medical [place] PO Box trimesterEncntr Center [facility], 1522, screen for [place], infections w sexl 120, Medical [place], mode [place] [place] [address] [id number], transmissEncounter [place], [address], [place] for screening for [id number] She[place], tel:+[phone] ot infec/parastc , [place]. 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, [address] metabolic diseases tel: tel:[phone] Morena [place]on Nov- Rc Referring In Womens Follow-Up, Routine [place]. 700 Provider: Romana ARIZA, 5 Medical Hum[place]a PO Box [facility], 1522, [place] St[place], 120, Medical [place], [place], [place] [id number], [place], [address], [place] [id number] [place], tel:+3162 , [place], [address]. tel: tel:[phone] Morena [place]on Routine Care, Dec- Rc Referring In Womens [id number] [facility] 700 Provider: Romana ARIZA, weeks gestation of 5 Medical [facility] Box Center [address], [place] [address] [place], 120, Medical She[place] [facility] [id number], [place], [facility] 120, [place] [id number] [place], tel: , [place]. [place], tel: [phone]. [id number] tel:[phone] Associates [facility] Sep-0 Rc Referring In Womens 3-201 [place]. 700 Provider: Health TO, 5 [facility] [address], [place] [address] [place], 120, Medical Shemar [facility] [id number], [place], Billy 120, [place] [id number] [place], tel: , [place]. [place], tel: [phone]. [id number] tel:[phone] Associates [facility] Sep-1 Rc In Womens 5-200 [place]. 700 Health [place], [address] [facility] [address] Narda, [facility] Kiana, [facility], Shemar RAWLS, [id number], [place], [place] [id number] tel: , [place]. tel: [phone] Morena [place] Sep-0 [place] In Womens 2-200 [facility], [address] [place] [address], [place] [address] [place], [facility], 120, [id number], [place], [facility], tel: [phone] , [place]. tel: [phone] Family History Family Member Diagnosis Age At Onset Sister Gynecological Problem Mother Hypercholesterolemia Paternal Grandmother Diabetes mellitus Immunizations Vaccine Date Status Comments Influenza, injectable, completed Source: New Immunization Record quadrivalent, preservative free, 3 yrs or older Tdap completed Source: New Immunization Record Payers Payer name Insurance type Covered constitution party ID Authorization(s) [facility] [id number] [facility] [id number] [facility] [id number] Social History Type Description Quantity Date Captured Alcohol Use Details No Caffeine Use Details Unknown Tobacco Use Status Never smoked tobacco Smoking Status Never smoker Non-Smoking Tobacco Use : No Details Available : No Details Available Details Vital Signs Date / Height Weight BMI Pulse Blood Temperature Respiratory Body Head BMI Time: Rate Pressure Rate Surface Circumference percentile Area 170.90 30.1 108/80 -2018 lbs 3 mm[Hg] 10:19 kg/m AM eter (2) Chief Complaint And Reason For Visit Unknown Chief Complaint And Reason For Visit Reason For Referral Reason For Referral Unknown Plan Of Care Date Type Action Status Appointment Sharri Corona BOOKED Future Order: Lab [...]
[2017-10-20] MEDS ORDERED: BETAMETHASONE 30 MG/5 ML INJECTION IM ONE (06:21)
[2017-10-20] MEDS: D5LR 1,000 ML IV PRN ×2 (06:59→15:25)
[2017-10-20 07:16] VITALS: BMI 32.8
[2017-10-20] MEDS ORDERED: DiphenhydrAMINE 50 MG/ML INJECTION IVP PRN (09:20)
[2017-10-20] MEDS ORDERED: ROPIVACAINE 1% 10MG/ML INJ 200 MG, SUFentanil 50 MCG in NS 100 ML EPI PRN (09:20)
[2017-10-20] MEDS ORDERED: NALOXONE 0.4 MG/ML INJECTION IVP PRN (09:20)
[2017-10-20] MEDS ORDERED: ONDANSETRON 4 MG/2 ML INJECTION IVP PRN ×2 (09:20→20:46)
--- NOTE | 2017-10-20 09:20 | Anesthesia Preoperative Report ---
Anesthesia Epidural/Spinal Rec - Date and Time Date: 10/20/17 Procedure: Labor Epidural Plan: Epidural - Vital Signs Vital Signs: Temperature 97.6 F 10/20/17 07:07 Pulse Rate 86 10/20/17 07:07 Respiratory Rate 18 10/20/17 07:07 Blood Pressure 102/64 10/20/17 07:07 Pulse Oximetry 98 10/20/17 07:07 /Para: P:4 - Medictaions & Allergies Inpatient Medications: Current Medications Acetaminophen (Tylenol) 500 - 1,000 mg PO Q4H PRN PRN Reason: Pain Al Hydroxide/Mg Hydroxide (Maalox Plus) 30 ml PO Q3H PRN PRN Reason: Indigestion Calcium Carbonate (Tums) 500 - 1,000 mg PO Q2H PRN PRN Reason: Indigestion Carboprost Tromethamine (Hemabate) 250 mcg IM O PRN PRN Reason: .Downtime Dextrose/Lactated Ringer's (Dextrose 5%-Lactated Ringers) 1,000 mls @ 125 mls/ hr IV .Q8H PRN PRN Reason: Labor Last Admin: 10/20/17 06:59 Dose: 125 mls/hr Lactated Ringer's (Lactated Ringers) 1,000 mls @ 999 mls/hr IV .Q1H1M PRN Last Admin: 10/20/17 06:59 Dose: 999 mls/hr Oxytocin (Pitocin Drip) 30 unit in 500 mls @ 2 mls/hr IV .Q24H PRN; Protocol PRN Reason: Induction/Augmentation Last Admin: 10/20/17 06:58 Dose: 2 mls/hr Lidocaine HCl (Xylocaine-Mpf 1% Vial) 0.2 mg ID O PRN PRN Reason: IV Start Methylergonovine Maleate (Methergine) 0.2 mg IM O PRN Misoprostol (Cytotec) 800 mcg KS ONCE PRN Sodium Chloride (Iv Flush) 10 - 80 ml IV PRN PRN PRN Reason: Flushing Allergies/Adverse Reactions: Allergies Allergy/AdvReac Type Severity Reaction Status Date / Time No Known Drug Allergies Allergy Verified 10/20/17 07:19 - Home Medications Home Medications: Home Medications Medication Instructions Recorded Confirmed Type CALCIUM CARBONATE Chewable [Tums] 500 mg PO CHEW Q2-4HPRN 10/18/17 10/18/17 History raNITIdine HCl [Zantac] 150 mg PO DAILY 10/18/17 10/18/17 History Tablet 1 tab PO DAILY 10/20/17 10/20/17 History - Medical History Cardiovascular: DENIES: Hypertension Neuro/Musculoskeletal: Reports: 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 babies ; took medication) Other History: Reports: Now - Surgical History HEENT Surgeries: Reports: Other (wisdom teeth removed at age 18) Reproductive Surgery/Treatment: DENIES: Section Anesthesia Reactions: None Hx Family Anesthesia Reaction: No History of Motion Sickness: No - Social History Smoking Status: Never smoker Substance Use Type: does not use - Pertinent Findings Lab Data: CBC and BMP 10/20/17 06:28 - Physical Exam Respiratory Exam: lungs clear, bilateral breath sounds equal Cardiovascular Exam: regular rate and rhythm - Airway Assessment Mallampati Score: II TMD: 3 Fingerbreadths Neck Extension: good Overall Assessment: may be difficult mask vent, may be difficult intubation - ASA ASA Score: 2 - Discussion Discussion: Discussed risks/options/alternatives of anesthesia and questions answered. Patient consents. Nursing pain assessment noted. Anesthesia Discussion: spouse, family member Attestation Statement: Prior to the delivery of any anesthetic medication, I examined the patient, developed the plan, obtained the patient's consent and discussed the risk and benefits of the procedure with the patient/guardian.
[2017-10-20] MEDS: ACETAMINOPHEN 500 MG TABLET PO PRN ×2 (10:33→15:41)
[2017-10-20] MEDS ORDERED: FAMOTIDINE PB 20 MG/50 ML BAG IV ONE (16:37)
[2017-10-20] MEDS ORDERED: CEFAZOLIN PREMIX (MC ONLY) 2 GM/50 ML BAG IV ONE (16:37)
[2017-10-20] MEDS ORDERED: CITRIC ACID/SODIUM CITRATE 30ml PO ONE (16:37)
[2017-10-20] MEDS ORDERED: FentaNYL 100 MCG/2 ML INJECTION ONE (16:46)
[2017-10-20] MEDS ORDERED: LIDOCAINE 2%/EPI 1:200,000 20ml SDV PF ONE (16:46)
[2017-10-20] MEDS ORDERED: TRANEXAMIC ACID 1,000 MG in NS 100 ML IV ONE (17:10)
[2017-10-20] MEDS ORDERED: LR 1,000 ML IV SCH (17:15)
[2017-10-20] MEDS ORDERED: OXYTOCIN BOLUS BAG 30 UNIT/500 ML ML IV SCH (17:15)
[2017-10-20] MEDS ORDERED: ONDANSETRON 4 MG/2 ML INJECTION ONE (17:25)
[2017-10-20] MEDS ORDERED: MORPHINE SULFATE PF 5mg/10ml INJ (Duramorph) ONE (17:42)
--- NOTE | 2017-10-20 18:04 | Progress Note ---
DATE 10/20/2017 NARRATIVE Ms. Corona has not progressed in labor past 4 cm. When we start Pitocin baby has heart rate decelerations. When we stop the Pitocin the heart rate is reactive and reassuring. I placed an intrauterine pressure catheter to see if that would help instigate some labor but it has not helped at all. At this I have recommended a primary section. She would like to defer the tubal ligation she had considered earlier. We will certainly not perform that today per her wishes. We have reviewed the potential risks of surgery and the options and she agrees with this plan. KIKE
[2017-10-20] MEDS ORDERED: OXYTOCIN DRIP 30 UNIT/500 ML ML IV SCH (19:52)
[2017-10-20] MEDS ORDERED: ACETAMINOPHEN 500 MG TABLET PO PRN (19:52)
[2017-10-20] MEDS ORDERED: SIMETHICONE 80 MG CHEWABLE TABLET PO PRN (19:52)
[2017-10-20] MEDS ORDERED: HYDROCORTISONE 2.5% CREAM 30gm RECTALLY PRN (19:52)
[2017-10-20] MEDS ORDERED: DiphenhydrAMINE 25 MG CAPSULE PO PRN (19:52)
[2017-10-20] MEDS ORDERED: METOCLOPRAMIDE 10mg/2ml INJECTION IVP PRN (20:47)
[2017-10-21] MEDS: SIMETHICONE 80 MG CHEWABLE TABLET PO SCH ×3 (02:25→19:00)
[2017-10-21] MEDS: D5LR 1,000 ML IV SCH ×2 (02:33→11:36)
[2017-10-21] MEDS: DOCUSATE CALCIUM 240 MG CAPSULE PO SCH (09:05)
--- NOTE | 2017-10-21 10:39 | Operative Note ---
DATE OF SURGERY 10/20/2017 PREOPERATIVE DIAGNOSES 1. intolerance of labor. 2. Placental abnormalities. POSTOPERATIVE DIAGNOSES 1. intolerance of labor - delivered. 2. Placental abnormalities. PROCEDURES Primary low transverse section. SURGEON Helena Richards MD [employer] Aubrey Villegas, DO ANESTHESIA Epidural by Olaf John CRNA EBL 1500 mL DESCRIPTION OF PROCEDURE Mrs. Corona was brought to the OR and placed on the OR table in a comfortable supine position with left lateral displacement. A Scanlon catheter had previously been placed to dependent drain. Her epidural analgesia was brought up to adequate surgical levels. The abdomen was prepped and draped in the usual sterile fashion. A Pfannenstiel skin incision was made with a sharp knife. This was carried down to fascia. Fascia was incised transversely. Fascia was then bluntly and sharply dissected free of the rectus muscles. Rectus muscles were bluntly divided. Peritoneum was tented up and sharply entered. This was then extended vertically. The bladder blade was inserted. The bladder was noted to be well below our area of operation. There were, however, large varicosities that were tortuous over the left lower quadrant of the uterus at the uterine corpus and descending down to the cervix. I made a low transverse uterine incision just above these. It was bluntly extended although there was immediately copious bleeding from apparent venous lakes, particularly on the left. The baby was delivered in the vertex OP presentation. Baby was bulb suctioned on the abdomen, then delivered and further bulb suctioned. Cord was doubly clamped and cut and baby was then given to Dr. Tristan and his team for care. This is a liveborn female with Apgars of 8/9/9. She weighed 6 pounds, 1.7 ounces. The uterus was exteriorized and the placenta was manually removed intact. It was abnormal in appearance consistent with findings on her sonogram and it was sent to Pathology for evaluation. However, membranes were quite adherent anteriorly. We removed all these manually as well as we could, then I took the banjo curette and sharply curetted the anterior endometrium. Then we were able to remove the last of the membranes. Meanwhile, we had clamped the bleeding vessels and began our closure. The myometrial incision was reapproximated with a running, locking 0-Monocryl. However, on the left there was still a venous area that with persisted in bleeding. Initially we attempted to secure this with a [id number] suture of 0-chromic. We were able ultimately to secure it with a simple ligature of 0-chromic. This was quite lateral but we were very careful to avoid venous plexus of the broad ligament. After watching carefully for several minutes and making sure that hemostasis was under good control, we removed gross blood clots from the abdominal cavity and returned the uterus, tubes and ovaries to the abdominal cavity. The patient had previously stated that she did not want to go ahead with tubal ligation although she and Dr. Tatum had talked about that in the future. Therefore, it was not performed today. We then continued our closure. Peritoneum was reapproximated with a running, nonlocking 2-0 Vicryl. Fascia was reapproximated with a running, nonlocking 0-Vicryl. Skin edges were reapproximated with subcuticular style 3-0 undyed Vicryl. The wound was dressed with the Vicryl mesh and a Dermabond dressing, then an ABD over that. Counts were correct postoperatively x 2. The urine remained clear and free- flowing throughout the procedure. At the time of this dictation Mrs. Corona has been transferred to recovery in stable condition status. KIKE
[2017-10-21] MEDS: IBUPROFEN 800 MG TABLET PO PRN (10:54)
--- NOTE | 2017-10-21 10:59 | OB/GYN Progress Note ---
OB-PP Progress Note - General PPD1 Maternal Group B Strep: Negative Maternal Rh: positive Maternal Rubella Status: Immune - Subjective Date: 10/21/17 Lochia: Minimal Pain: controlled Voiding: paredes still in place Nausea or Vomiting Present: No - Objective Vital Signs: Last Vital Signs Temp 97.7 F 10/21/17 06:00 Pulse 75 10/21/17 06:00 Resp 16 10/21/17 06:00 BP 103/62 10/21/17 06:00 Pulse Ox 95 10/21/17 06:00 Urine Output: good General: alert and oriented Incision: dry, dressed Extremities: non-tender Laboratory: Laboratory Results - last 24 hr 10/20/17 10/21/17 22:27 07:45 WBC 15.9 H 13.6 H RBC 2.79 L 2.62 L Hgb 9.0 L D 8.2 L Hct 25.9 L D 24.1 L MCV 92.8 92.0 MCH 32.3 31.3 MCHC 34.7 34.0 RDW Std Deviation 43.0 43.2 Plt Count 190 184 MPV 9.9 9.6 - Assessment Assessment: SP, Primary C/S, Anemia - Plan Plan: routine care, iron
[2017-10-21] MEDS: FERROUS SULFATE 324 MG TABLET PO SCH (11:22)
--- NOTE | 2017-10-21 12:00 | Anesthesia Postoperative Note ---
- Date and Time Date: 10/21/17 Time: 11:59 - Status Patient Participated in Evaluation: Patient Participated in Person Vital Signs: Temperature 98.3 F 10/21/17 10:00 Pulse Rate 72 10/21/17 10:00 Respiratory Rate 16 10/21/17 10:00 Blood Pressure 114/65 10/21/17 10:00 Pulse Oximetry 98 10/21/17 10:00 Respiratory Function: Airway Patent Cardiovascular Function: Regular Pulse Mental Status: Alert and Oriented Pain Intensity: 0 Hydration: Taking PO Fluids Nausea/Vomiting: None Complications During Recover: None Apparent - Follow-Up Instructions Instructions: Per Surgeon
[2017-10-22] MEDS: IBUPROFEN 800 MG TABLET PO PRN ×2 (04:30→14:03)
[2017-10-22] MEDS: HYDROCODONE/APAP 5mg/325mg TABLET PO PRN ×3 (04:31→11:53)
[2017-10-22] MEDS: FERROUS SULFATE 324 MG TABLET PO SCH (09:02)
[2017-10-22] MEDS: DOCUSATE CALCIUM 240 MG CAPSULE PO SCH (09:02)
[2017-10-22] MEDS: SIMETHICONE 80 MG CHEWABLE TABLET PO SCH ×3 (09:03→14:02)
--- NOTE | 2017-10-22 12:16 | OB/GYN Progress Note ---
OB-PP Progress Note - General PPD2 POD:: POD2 Maternal Group B Strep: Negative Maternal Rh: positive Maternal Rubella Status: Immune - Subjective Date: 10/22/17 Lochia: Minimal Pain: controlled Voiding: voiding Nausea or Vomiting Present: No - Objective Vital Signs: Last Vital Signs Temp 98.4 F 10/22/17 08:00 Pulse 76 10/22/17 08:00 Resp 18 10/22/17 08:00 BP 103/63 10/22/17 08:00 Pulse Ox 98 10/22/17 08:00 Urine Output: good General: alert and oriented Abdomen: fundus firm, non-tender Incision: normal, clean Extremities: non-tender Edema: none - Assessment Assessment: SP, Primary C/S, Anemia - Plan Pt is interested in being dismissed this evening. Tolerating po iron, activity. Will consider dismissal tonight if today continues to go well. Reviewed meds, instructions. Q&A
[2017-10-22 14:24] VITALS: RESP 16
[2017-10-22 16:24] VITALS: BP 107/67; PULSE 88; TEMP 98.9; O2SAT 96
== END 2017-10-22 16:26 | disposition home or self-care (01) | DRG 765 ==
LOC: MC 06:13
PROVIDERS: ADMIT Obstetrics & Gynecology; ATTEND Obstetrics & Gynecology